=== PATIENT | male | born 1955 | race Caucasian/White ===

== ENCOUNTER 2020-07-01 12:21 | Outpatient (CLI) | payer BC | END 2020-07-01 12:22 | disposition home or self-care (01) | LOC: TBSIIMAG 12:21 | PROVIDERS: ATTEND Orthopaedic Surgery | DX: M75.101 Unspecified rotator cuff tear or rupture of right shoulder, not specified as traumatic (principal) ==

== ENCOUNTER 2020-07-01 14:06 | Outpatient (CLI) | payer BC ==
[2020-07-01 14:51] LABS: Hemoglobin 13.4 g/dL (13.5-17.5); Mean Corpuscular HGB CONC 33.7 g/dL (32.0-36.0); Mean Corpuscular Hemoglobin 33.5 pg (27.0-33.0); Mean Corpuscular Volume 99.5 fl (81.2-95.1); Mean Platelet Volume 9.9 fl (7.4-10.4); Platelet Count 129 10x3/uL (150-450); RBC Distribution Width 14.5 % (11.5-14.5); White Blood Cell (WBC) Count 4.9 10x3/uL (3.5-10.5)
[2020-07-01 15:01] LABS: Anion Gap 16 mmol/L (10-20); BUN (Urea Nitrogen) 27 mg/dL (8.4-25.7); Calc. Creatinine Clearance 0 mL/min (70-130); Calcium 9.6 mg/dL (7.8-10.44); Carbon Dioxide 21 mmol/L (23-31); Chloride 104 mmol/L (98-107); Glucose 201 mg/dL (80-115); Potassium 4.8 mmol/L (3.5-5.1); Sodium 136 mmol/L (136-145)
[2020-07-02 00:34] LABS: SARS-CoV-2 PCR by NAA Not Detected (NotDetected)
== END 2020-07-01 14:07 | disposition home or self-care (01) ==
LOC: LABBT 14:06
PROVIDERS: ATTEND Neurological Surgery
DX: Z01.818 Encounter for other preprocedural examination (principal); Z20.822 Contact with and (suspected) exposure to COVID-19; M51.16 Intervertebral disc disorders with radiculopathy, lumbar region
CPT/HCPCS: 80048; 85027; 87635; U0003; U0005

== ENCOUNTER 2020-07-04 05:45 | Day surgery (SDC) | payer BC ==
[2020-07-02 14:10] VITALS: BMI 32.3
[2020-07-04] MEDS ORDERED: Fentanyl 250 MCG/5 ML VIAL ONE (06:05)
[2020-07-04] MEDS ORDERED: Thrombin 5000 UNITS/5 ML VIAL ONE (06:25)
[2020-07-04] MEDS ORDERED: EPINEPHrine 1 MG/ML AMP ONE (06:25)
[2020-07-04] MEDS ORDERED: Bupivacaine 0.25% HCL 30 ML VIAL ONE (06:25)
[2020-07-04] MEDS ORDERED: Bupivacaine PF 0.5% 30 ML VIAL ONE (06:32)
[2020-07-04] MEDS ORDERED: Nitroglycerin 2% Ointment 1 INCH/1 GM Packet ONE (06:43)
[2020-07-04] MEDS ORDERED: SUGAMMADEX SODIUM 200 MG/2 ML VIAL ONE (07:33)
[2020-07-04] MEDS ORDERED: Tamsulosin HCl 0.4 MG CAP ONE (08:35)
[2020-07-04] MEDS ORDERED: traMADol HCl 50 MG TAB ONE (10:11)
== END 2020-07-04 11:00 | disposition home or self-care (01) ==
LOC: SDC 05:45
PROVIDERS: ATTEND Neurological Surgery
PROC: 0ST20ZZ Resection of Lumbar Vertebral Disc, Open Approach (ICD-10-PCS; principal; 2020-07-04)
DX: M51.16 Intervertebral disc disorders with radiculopathy, lumbar region (principal); E78.00 Pure hypercholesterolemia, unspecified; G89.4 Chronic pain syndrome; E11.9 Type 2 diabetes mellitus without complications; M19.90 Unspecified osteoarthritis, unspecified site; M10.9 Gout, unspecified; I10 Essential (primary) hypertension; I25.10 Atherosclerotic heart disease of native coronary artery without angina pectoris; Z79.4 Long term (current) use of insulin; Z79.82 Long term (current) use of aspirin; Z79.899 Other long term (current) drug therapy; Z88.5 Allergy status to narcotic agent; Z95.1 Presence of aortocoronary bypass graft
CPT/HCPCS: 36416; 76000; J0171; J0690; J3010; S0020

== ENCOUNTER 2020-09-12 13:20 | Outpatient (CLI) | payer BC ==
[2020-09-12 14:21] LABS: #Eosinphils 0.1 10x3/uL (0.0-0.5); #Monocytes 0.5 10x3/uL (0.0-1.1); #Neutrophils 1.6 10x3/uL (1.5-8.4); %Basophils 0.5 % (0.0-2.0); %Eosinophils 2.6 % (0.0-6.0); %Lymphocytes 44.1 % (18.0-47.0); %Monocytes 12.1 % (0.0-10.0); %Neutrophils 40.2 % (40.0-75.0); Hemoglobin 12.8 g/dL (13.5-17.5); Mean Corpuscular HGB CONC 32.7 g/dL (32.0-36.0); Mean Corpuscular Hemoglobin 32.7 pg (27.0-33.0); Mean Platelet Volume 9.8 fl (7.4-10.4); Platelet Count 124 10x3/uL (150-450); Red Blood Cell (RBC) Count 3.91 10x6/uL (4.32-5.72); White Blood Cell (WBC) Count 3.9 10x3/uL (3.5-10.5)
[2020-09-12 14:28] LABS: Prothrombin Time 10.8 sec (9.5-12.1)
[2020-09-12 14:31] LABS: Anion Gap 15 mmol/L (10-20); BUN (Urea Nitrogen) 18 mg/dL (8.4-25.7); Calc. Creatinine Clearance 0 mL/min (70-130); Calcium 10.1 mg/dL (7.8-10.44); Carbon Dioxide 23 mmol/L (23-31); Chloride 104 mmol/L (98-107); Glucose 108 mg/dL (80-115); Potassium 4.3 mmol/L (3.5-5.1); Sodium 138 mmol/L (136-145)
[2020-09-13 15:23] LABS: SARS-CoV-2 PCR by NAA Not Detected (NotDetected)
== END 2020-09-12 13:21 | disposition home or self-care (01) ==
LOC: LABBT 13:20
PROVIDERS: ATTEND Orthopaedic Surgery
DX: Z01.818 Encounter for other preprocedural examination (principal); M75.101 Unspecified rotator cuff tear or rupture of right shoulder, not specified as traumatic; Z20.822 Contact with and (suspected) exposure to COVID-19
CPT/HCPCS: 80048; 85025; 85610; 93005; 93010; U0003; U0005

== ENCOUNTER 2020-09-17 05:43 | Day surgery (SDC) | payer MEDICARE, BC ==
[2020-09-15 14:05] VITALS: BMI 36.0
[2020-09-17] MEDS ORDERED: VANCOMYCIN 2 GRAM/400 ML BAG 2 GM in Premix Bag 1 BAG IVPB SCH (06:00)
[2020-09-17] MEDS ORDERED: Fentanyl 100 MCG/2 ML VIAL ONE ×2 (06:22→06:40)
[2020-09-17] MEDS ORDERED: Midazolam HCl 2 mg/2 ml Vial ONE (06:40)
[2020-09-17] MEDS ORDERED: Rocuronium Bromide 10 MG/ML (10ML VIAL) ONE (07:33)
[2020-09-17] MEDS ORDERED: Metoclopramide HCl 10 MG/2 ML VIAL ONE (07:33)
[2020-09-17] MEDS ORDERED: Lidocaine 1% PF 5 ML VIAL ONE (07:33)
[2020-09-17] MEDS ORDERED: Glycopyrrolate 0.2 MG/ML 5 ML SYRINGE ONE (07:33)
[2020-09-17] MEDS ORDERED: PROPOFOL 200 MG/20 ML VIAL ONE (07:33)
[2020-09-17] MEDS ORDERED: PHENYLEPHRINE-NS 100 MCG/ML 10 ML SYRINGE ONE (07:33)
[2020-09-17] MEDS ORDERED: ePHEDrine 50 MG/ML VIAL ONE (07:33)
[2020-09-17] MEDS ORDERED: Ropivacaine 2% HCl/PF (20 MG/10 ML VIAL) ONE (07:33)
[2020-09-17] MEDS ORDERED: Ropivacaine 0.5% HCl/PF (150 MG/30 ML VIAL) ONE (07:33)
[2020-09-17] MEDS ORDERED: Ondansetron PF 4 MG/2 ML Vial ONE (07:33)
[2020-09-17] MEDS ORDERED: Phenylephrine 10 MG/ML VIAL ONE ×2 (08:20→09:14)
[2020-09-17] MEDS ORDERED: Promethazine HCl 25 MG/ML VIAL IM PRN (08:30)
[2020-09-17] MEDS ORDERED: Ondansetron PF 4 MG/2 ML Vial IVP PRN (08:30)
[2020-09-17] MEDS ORDERED: HYDROcodone/Acetaminophen 5/325 mg Tablet PO PRN ×2 (08:30)
[2020-09-17] MEDS ORDERED: traMADol HCl 50 MG TAB PO PRN ×2 (08:30)
[2020-09-17] MEDS ORDERED: Ropivacaine 0.2% 550 ML 550 ML NERVE BLCK SCH (08:30)
[2020-09-17] MEDS ORDERED: Zolpidem Tartrate 5 MG TAB PO PRN (08:30)
[2020-09-17] MEDS ORDERED: traMADol HCl 50 MG TAB ONE (13:04)
== END 2020-09-17 13:30 | disposition home or self-care (01) ==
LOC: SDC 05:43
PROVIDERS: ATTEND Orthopaedic Surgery
PROC: 0LS30ZZ Reposition Right Upper Arm Tendon, Open Approach (ICD-10-PCS; principal; 2020-09-17)
PROC: 0LQ10ZZ Repair Right Shoulder Tendon, Open Approach (ICD-10-PCS; 2020-09-17)
PROC: 0RNJ0ZZ Release Right Shoulder Joint, Open Approach (ICD-10-PCS; 2020-09-17)
PROC: 3E0T3BZ Introduction of Anesthetic Agent into Peripheral Nerves and Plexi, Percutaneous Approach (ICD-10-PCS; 2020-09-17)
DX: S46.111A Strain of muscle, fascia and tendon of long head of biceps, right arm, initial encounter (principal); M25.811 Other specified joint disorders, right shoulder; M75.121 Complete rotator cuff tear or rupture of right shoulder, not specified as traumatic; S43.491A Other sprain of right shoulder joint, initial encounter; I25.2 Old myocardial infarction; G47.33 Obstructive sleep apnea (adult) (pediatric); I25.10 Atherosclerotic heart disease of native coronary artery without angina pectoris; E10.9 Type 1 diabetes mellitus without complications; M10.9 Gout, unspecified; M19.90 Unspecified osteoarthritis, unspecified site; Z87.891 Personal history of nicotine dependence; Z79.82 Long term (current) use of aspirin; Z79.84 Long term (current) use of oral hypoglycemic drugs; Z79.899 Other long term (current) drug therapy; Z88.5 Allergy status to narcotic agent; Z95.1 Presence of aortocoronary bypass graft; Z95.5 Presence of coronary angioplasty implant and graft
CPT/HCPCS: 23130; 23412; 23430; 64416; 82962; A4306; 36416; J0690; J2250; J2370; J2405; J2704; J2765; J2795; J3010; J3370; J3490

== ENCOUNTER 2020-10-16 13:10 | Outpatient (CLI) | payer MEDICARE, BC | END 2020-10-16 13:11 | disposition home or self-care (01) | LOC: TBSIIMAG 13:10 | PROVIDERS: ATTEND Neurological Surgery | DX: M47.26 Other spondylosis with radiculopathy, lumbar region (principal); M51.16 Intervertebral disc disorders with radiculopathy, lumbar region; M48.061 Spinal stenosis, lumbar region without neurogenic claudication; Z98.890 Other specified postprocedural states | CPT/HCPCS: 72148; 82565 ==

== ENCOUNTER 2020-10-28 13:36 | Outpatient (CLI) | payer MEDICARE, BC ==
[2020-10-28 15:00] LABS: Anion Gap 16 mmol/L (10-20); BUN (Urea Nitrogen) 22 mg/dL (8.4-25.7); Calc. Creatinine Clearance 0 mL/min (70-130); Calcium 9.9 mg/dL (7.8-10.44); Carbon Dioxide 23 mmol/L (23-31); Chloride 102 mmol/L (98-107); Glucose 167 mg/dL (80-115); Potassium 4.2 mmol/L (3.5-5.1); Sodium 137 mmol/L (136-145)
[2020-10-28 15:20] LABS: Hemoglobin 12.9 g/dL (13.5-17.5); Mean Corpuscular Hemoglobin 33.2 pg (27.0-33.0); Mean Corpuscular Volume 100.8 fl (81.2-95.1); Mean Platelet Volume 10.1 fl (7.4-10.4); Platelet Count 127 10x3/uL (150-450); RBC Distribution Width 13.9 % (11.5-14.5); Red Blood Cell (RBC) Count 3.88 10x6/uL (4.32-5.72); White Blood Cell (WBC) Count 3.6 10x3/uL (3.5-10.5)
[2020-10-29 08:06] LABS: SARS-CoV-2 PCR by NAA Not Detected (NotDetected)
== END 2020-10-28 13:37 | disposition home or self-care (01) ==
LOC: LABBT 13:36
PROVIDERS: ATTEND Neurological Surgery
DX: Z01.812 Encounter for preprocedural laboratory examination (principal); Z20.822 Contact with and (suspected) exposure to COVID-19
CPT/HCPCS: 80048; 85027; U0003; U0005

== ENCOUNTER 2020-10-31 06:43 | Day surgery (SDC) | payer MEDICARE, BC ==
[2020-10-29 14:13] VITALS: BMI 30.7
[2020-10-31] MEDS ORDERED: Thrombin 5000 UNITS/5 ML VIAL ONE ×2 (09:26→11:42)
[2020-10-31] MEDS ORDERED: Lidocaine 1% w/Epinephrine 1:100K 20 ML VIAL ONE (09:26)
[2020-10-31] MEDS ORDERED: Bupivacaine PF 0.5% 30 ML VIAL ONE (09:26)
[2020-10-31] MEDS ORDERED: Fentanyl 250 MCG/5 ML VIAL ONE (10:03)
[2020-10-31] MEDS ORDERED: Ondansetron PF 4 MG/2 ML Vial ONE (10:17)
[2020-10-31] MEDS ORDERED: Rocuronium Bromide 10 MG/ML (10ML VIAL) ONE (10:17)
[2020-10-31] MEDS ORDERED: Glycopyrrolate 0.2 MG/ML 5 ML SYRINGE ONE (10:17)
[2020-10-31] MEDS ORDERED: PROPOFOL 200 MG/20 ML VIAL ONE (10:17)
[2020-10-31] MEDS ORDERED: ePHEDrine 50 MG/ML VIAL ONE (10:17)
[2020-10-31] MEDS ORDERED: Metoclopramide HCl 10 MG/2 ML VIAL ONE (10:17)
[2020-10-31] MEDS ORDERED: Lidocaine 1% PF 5 ML VIAL ONE (10:17)
[2020-10-31] MEDS ORDERED: PHENYLEPHRINE-NS 100 MCG/ML 10 ML SYRINGE ONE (10:17)
[2020-10-31] MEDS ORDERED: Fentanyl 100 MCG/2 ML VIAL ONE (12:19)
[2020-10-31] MEDS ORDERED: Tamsulosin HCl 0.4 MG CAP ONE (12:20)
[2020-10-31] MEDS ORDERED: HYDROcodone/Acetaminophen 5/325 mg Tablet ONE (14:20)
== END 2020-10-31 15:49 | disposition home or self-care (01) ==
LOC: SDC 06:43
PROVIDERS: ATTEND Neurological Surgery
PROC: 0SB20ZZ Excision of Lumbar Vertebral Disc, Open Approach (ICD-10-PCS; principal; 2020-10-31)
DX: M51.16 Intervertebral disc disorders with radiculopathy, lumbar region (principal); I25.10 Atherosclerotic heart disease of native coronary artery without angina pectoris; I10 Essential (primary) hypertension; E10.9 Type 1 diabetes mellitus without complications; E78.5 Hyperlipidemia, unspecified; G89.4 Chronic pain syndrome; M10.9 Gout, unspecified; Z79.4 Long term (current) use of insulin; Z79.82 Long term (current) use of aspirin; Z87.891 Personal history of nicotine dependence; Z88.5 Allergy status to narcotic agent; Z95.1 Presence of aortocoronary bypass graft; Z95.5 Presence of coronary angioplasty implant and graft
CPT/HCPCS: 76000; J0690; J2405; J2704; J2765; J3010; J3490; S0020

== ENCOUNTER 2021-02-13 12:55 | Outpatient (CLI) | payer MEDICARE, BC | END 2021-02-13 12:56 | disposition home or self-care (01) | LOC: BICULT 12:55 | PROVIDERS: ATTEND Family Medicine | DX: G45.9 Transient cerebral ischemic attack, unspecified (principal); I65.23 Occlusion and stenosis of bilateral carotid arteries | CPT/HCPCS: 93880 ==

== ENCOUNTER 2021-02-20 15:04 | Outpatient (CLI) | payer MEDICARE, BC ==
[~2021-02-20 15:04] MED LIST: Iopamidol-370 76% 500 ML 1 ML ONE
== END 2021-02-20 15:05 | disposition home or self-care (01) ==
LOC: BICCT 15:04
PROVIDERS: ATTEND Family Medicine
DX: R93.89 Abnormal findings on diagnostic imaging of other specified body structures (principal); I65.22 Occlusion and stenosis of left carotid artery; C34.12 Malignant neoplasm of upper lobe, left bronchus or lung
CPT/HCPCS: 70498; Q9967

== ENCOUNTER → 2021-03-10 | Outpatient (CLI) | payer MEDICARE, BC | LOC: PET 08:45 | PROVIDERS: ATTEND Thoracic Surgery (Cardiothoracic Vascular Surgery) | DX: I62.03 Nontraumatic chronic subdural hemorrhage (principal); C34.12 Malignant neoplasm of upper lobe, left bronchus or lung; I65.29 Occlusion and stenosis of unspecified carotid artery | CPT/HCPCS: 78816; A9552 ==

== ENCOUNTER 2021-03-18 15:47 | Outpatient (CLI) | payer MEDICARE, BC ==
[2021-03-18 16:42] LABS: Hemoglobin 12.8 g/dL (13.5-17.5); Mean Corpuscular HGB CONC 32.1 g/dL (32.0-36.0); Mean Corpuscular Hemoglobin 32.6 pg (27.0-33.0); Mean Corpuscular Volume 101.5 fl (81.2-95.1); Mean Platelet Volume 9.3 fl (7.4-10.4); Platelet Count 109 10x3/uL (150-450); RBC Distribution Width 14.7 % (11.5-14.5); Red Blood Cell (RBC) Count 3.93 10x6/uL (4.32-5.72); White Blood Cell (WBC) Count 3.5 10x3/uL (3.5-10.5)
[2021-03-18 17:01] LABS: Anion Gap 18 mmol/L (10-20); BUN (Urea Nitrogen) 21 mg/dL (8.4-25.7); Calc. Creatinine Clearance 0 mL/min (70-130); Calcium 9.1 mg/dL (7.8-10.44); Carbon Dioxide 22 mmol/L (23-31); Chloride 104 mmol/L (98-107); Glucose 155 mg/dL (80-115); Potassium 4.9 mmol/L (3.5-5.1); Sodium 139 mmol/L (136-145)
[2021-03-19 11:15] LABS: SARS-CoV-2 PCR by NAA Not Detected (NotDetected)
== END 2021-03-18 15:48 | disposition home or self-care (01) ==
LOC: LABBT 15:47
PROVIDERS: ATTEND Thoracic Surgery (Cardiothoracic Vascular Surgery)
DX: Z01.812 Encounter for preprocedural laboratory examination (principal); I65.29 Occlusion and stenosis of unspecified carotid artery; Z20.822 Contact with and (suspected) exposure to COVID-19
CPT/HCPCS: 80048; 85027; U0003; U0005

== ENCOUNTER 2021-03-18 16:00 | Inpatient (IN) | payer MEDICARE, BC ==
[2021-03-23] MEDS ORDERED: Heparin 5,000 UNITS/ML VIAL ONE (07:35)
[2021-03-23] MEDS ORDERED: Protamine Sulfate 50 MG/5 ML VIAL ONE (07:35)
[2021-03-23] MEDS ORDERED: Bupivacaine PF 0.5% 30 ML VIAL ONE (07:35)
[2021-03-23] MEDS ORDERED: EPINEPHrine 1 MG/ML AMP ONE (07:35)
[2021-03-23] MEDS ORDERED: ceFAZolin Sodium (SDC) 2 GM/100 ML BAG ONE (09:50)
[2021-03-23] MEDS ORDERED: Lidocaine 1% MPF 2 ML VIAL ONE (09:58)
[2021-03-23] MEDS ORDERED: Rocuronium Bromide 10 MG/ML (10ML VIAL) ONE (10:05)
[2021-03-23] MEDS ORDERED: Ondansetron PF 4 MG/2 ML Vial ONE (10:05)
[2021-03-23] MEDS ORDERED: Glycopyrrolate 0.2 MG/ML 5 ML SYRINGE ONE (10:05)
[2021-03-23] MEDS ORDERED: PROPOFOL 200 MG/20 ML VIAL ONE (10:05)
[2021-03-23] MEDS ORDERED: PHENYLEPHRINE-NS 100 MCG/ML 10 ML SYRINGE ONE ×2 (10:05→10:58)
[2021-03-23] MEDS ORDERED: ePHEDrine 50 MG/ML VIAL ONE (10:05)
[2021-03-23] MEDS ORDERED: Fentanyl 250 MCG/5 ML VIAL ONE (10:17)
[2021-03-23] MEDS ORDERED: Promethazine HCl 25 MG/ML VIAL IVPB PRN (12:02)
[2021-03-23] MEDS ORDERED: Promethazine HCl 25 MG/ML VIAL IM PRN ×2 (12:02→12:21)
[2021-03-23] MEDS ORDERED: Ondansetron HCl/PF 4 MG/2 ML Vial IVP PRN (12:02)
[2021-03-23] MEDS ORDERED: Fentanyl 100 MCG/2 ML VIAL SLOW IVP PRN (12:21)
[2021-03-23] MEDS ORDERED: Phenylephrine 40 MG in Sodium Chloride 0.9% 250 ML 250 ML IVPB PRN (12:21)
[2021-03-23] MEDS ORDERED: niCARdipine 25 MG in Sodium Chloride 0.9% 250 ML 250 ML IVPB PRN (12:21)
[2021-03-23] MEDS ORDERED: Acetaminophen 325 MG TAB PO PRN (12:21)
[2021-03-23] MEDS ORDERED: Insulin Regular 300 UNITS/3 ML VIAL SC PRN (12:21)
[2021-03-23] MEDS ORDERED: traMADol HCl 50 MG TAB PO PRN (12:21)
[2021-03-23] MEDS ORDERED: Ondansetron PF 4 MG/2 ML Vial IVP PRN (12:21)
[2021-03-23] MEDS ORDERED: Sodium Chloride 0.9% 1,000 ML IV SCH (12:21)
[2021-03-23] MEDS ORDERED: traMADol HCl 50 MG TAB ONE ×2 (13:43→13:44)
[2021-03-23] MEDS: CEFAZOLIN 2 GM, Admixture Fee 1 EACH in Sodium Chloride 0.9% 100 ML IVPB SCH (18:28)
[2021-03-23] MEDS ORDERED: Zolpidem Tartrate 5 MG TAB PO SCH (21:00)
[2021-03-23] MEDS ORDERED: Colchicine 0.6 MG TAB PO SCH (21:00)
[2021-03-23] MEDS ORDERED: Lantus 1000 UNITS/10 ML VIAL SC SCH (21:00)
[2021-03-23] MEDS ORDERED: Tamsulosin HCl 0.4 MG CAP PO SCH (21:00)
[2021-03-23] MEDS ORDERED: Amitriptyline HCl 25 MG TAB PO SCH (21:00)
[2021-03-24] MEDS: CEFAZOLIN 2 GM, Admixture Fee 1 EACH in Sodium Chloride 0.9% 100 ML IVPB SCH (02:14)
[2021-03-24 05:35] VITALS: TEMP 98.5
[2021-03-24] MEDS ORDERED: metFORMIN 850 MG TAB PO SCH (08:00)
[2021-03-24] MEDS ORDERED: Aspirin Chewable 81 MG TAB PO SCH (09:00)
== END 2021-03-24 07:51 | disposition home or self-care (01) | DRG 39 ==
LOC: SURG A 03-23 06:49 → CCU 03-23 15:32
PROVIDERS: ADMIT Thoracic Surgery (Cardiothoracic Vascular Surgery); ATTEND Thoracic Surgery (Cardiothoracic Vascular Surgery)
PROC: 03CH0ZZ Extirpation of Matter from Right Common Carotid Artery, Open Approach (ICD-10-PCS; principal; 2021-03-23)
PROC: 03UH0KZ Supplement Right Common Carotid Artery with Nonautologous Tissue Substitute, Open Approach (ICD-10-PCS; 2021-03-23)
DX: I65.23 Occlusion and stenosis of bilateral carotid arteries (principal); Z20.822 Contact with and (suspected) exposure to COVID-19; I10 Essential (primary) hypertension; E78.5 Hyperlipidemia, unspecified; I25.10 Atherosclerotic heart disease of native coronary artery without angina pectoris; E11.9 Type 2 diabetes mellitus without complications; M10.9 Gout, unspecified; M19.90 Unspecified osteoarthritis, unspecified site; F17.210 Nicotine dependence, cigarettes, uncomplicated; Z88.5 Allergy status to narcotic agent; Z95.1 Presence of aortocoronary bypass graft; Z88.8 Allergy status to other drugs, medicaments and biological substances; Z79.4 Long term (current) use of insulin; Z79.899 Other long term (current) drug therapy; Z79.84 Long term (current) use of oral hypoglycemic drugs; Z79.82 Long term (current) use of aspirin
CPT/HCPCS: 36416; 93005; 93010; C1768; J0171; J0690; J1642; J1644; J1815; J2405; J2704; J2720; J3010; J3490; S0020

== ENCOUNTER 2021-05-11 13:58 | Outpatient (CLI) | payer MEDICARE, BC ==
[2021-05-11 14:35] LABS: Hemoglobin 12.7 g/dL (13.5-17.5); Mean Corpuscular HGB CONC 32.8 g/dL (32.0-36.0); Mean Corpuscular Hemoglobin 32.9 pg (27.0-33.0); Mean Corpuscular Volume 100.3 fl (81.2-95.1); Mean Platelet Volume 9.5 fl (7.4-10.4); Platelet Count 169 10x3/uL (150-450); RBC Distribution Width 14.6 % (11.5-14.5); Red Blood Cell (RBC) Count 3.86 10x6/uL (4.32-5.72); White Blood Cell (WBC) Count 2.8 10x3/uL (3.5-10.5)
[2021-05-11 15:02] LABS: Anion Gap 15 mmol/L (10-20); BUN (Urea Nitrogen) 20 mg/dL (8.4-25.7); Calc. Creatinine Clearance 0 mL/min (70-130); Calcium 9.2 mg/dL (7.8-10.44); Carbon Dioxide 23 mmol/L (23-31); Chloride 104 mmol/L (98-107); Glucose 189 mg/dL (80-115); Sodium 138 mmol/L (136-145)
[2021-05-11 23:44] LABS: SARS-CoV-2 PCR by NAA Not Detected (NotDetected)
== END 2021-05-11 13:59 | disposition home or self-care (01) ==
LOC: LABBT 13:58
PROVIDERS: ATTEND Thoracic Surgery (Cardiothoracic Vascular Surgery)
DX: Z01.812 Encounter for preprocedural laboratory examination (principal); I65.21 Occlusion and stenosis of right carotid artery; Z20.822 Contact with and (suspected) exposure to COVID-19; J18.9 Pneumonia, unspecified organism; R91.8 Other nonspecific abnormal finding of lung field
CPT/HCPCS: 71046; 80048; 85027; U0003; U0005

== ENCOUNTER → 2021-06-30 | Day surgery (SDC) | payer MEDICARE, BC ==
[~2021-06-30] MED LIST changes: +Acetaminophen 500 MG TAB ONE; -Iopamidol-370 76% 500 ML 1 ML ONE; +diphenhydrAMINE 25 MG CAP ONE
[2021-06-30 12:24] VITALS: TEMP 97.8
[2021-06-30 12:27] VITALS: BP 104/58
[2021-06-30 13:13] LABS: Band 4 % (5-11); Hemoglobin 6.8 g/dL (14.0-18.0); Lymphocytes 12 % (21-51); MDiff Complete? YES; Mean Corpuscular HGB CONC 34.6 g/dL (32.0-36.0); Mean Corpuscular Hemoglobin 34.2 pg (27.0-31.0); Mean Corpuscular Volume 98.6 fL (78.0-98.0); Mean Platelet Volume 10.3 fL (7.4-10.4); Monocytes 4 % (0-10); Neutrophil 80 % (42-75); Ovalocytes SLIGHT = 2-5 cells (100X) (0-1/hpf); Platelet Count 40 thou/uL (130-400); Platelet Morphology Comment Appears Decreased; Polychromasia SLIGHT = 2-3 cells (100X) (0-2/hpf); RBC Distribution Width 15.2 % (11.5-14.5); White Blood Cell (WBC) Count 1.2 thou/uL (4.8-10.8)
== END | disposition home or self-care (01) ==
LOC: ONC/OP 09:23
PROVIDERS: ATTEND Internal Medicine Hematology & Oncology
PROC: 30233N1 Transfusion of Nonautologous Red Blood Cells into Peripheral Vein, Percutaneous Approach (ICD-10-PCS; principal; 2021-06-30)
DX: D64.9 Anemia, unspecified (principal); D69.6 Thrombocytopenia, unspecified; Z88.5 Allergy status to narcotic agent
CPT/HCPCS: 36430; 77386; 85025; 86850; 86900; 86901; J1642; P9016

== ENCOUNTER 2021-07-06 13:23 | Emergency (ER) | payer MEDICARE, BC ==
[2021-07-06 15:22] LABS: Hemoglobin 8.2 g/dL (14.0-18.0); Mean Corpuscular HGB CONC 34.6 g/dL (32.0-36.0); Mean Corpuscular Hemoglobin 34.4 pg (27.0-31.0); Mean Corpuscular Volume 99.6 fL (78.0-98.0); Mean Platelet Volume 9.2 fL (7.4-10.4); Platelet Count 63 thou/uL (130-400); RBC Distribution Width 19.1 % (11.5-14.5); Red Blood Cell (RBC) Count 2.38 mill/uL (4.70-6.10); White Blood Cell (WBC) Count 1.7 thou/uL (4.8-10.8)
[2021-07-06 15:39] LABS: Anisocytosis SLIGHT = 6-15 cells (100X) (0-5/hpf); Band 19 % (5-11); Eosinophils 2 % (0-10); Lymphocytes 13 % (21-51); MDiff Complete? YES; Monocytes 21 % (0-10); Neutrophil 43 % (42-75); Nucleated RBC 2 % (0); Ovalocytes SLIGHT = 2-5 cells (100X) (0-1/hpf); Platelet Morphology Comment Appears Decreased; Polychromasia MODERATE = 3-4 cells (100X) (0-2/hpf); Reactive Lymphocytes 1 % (0-10)
[2021-07-06 15:40] LABS: ALT (SGPT) 15 U/L (8-55); AST (SGOT) 21 U/L (5-34); Alkaline Phosphatase 66 U/L (40-110); Anion Gap 13 mmol/L (10-20); BUN (Urea Nitrogen) 19 mg/dL (8.4-25.7); Bilirubin, Total 0.8 mg/dL (0.2-1.2); CK (CPK) 101 U/L (30-200); Calc. Creatinine Clearance 0 mL/min (70-130); Calcium 8.9 mg/dL (7.8-10.44); Carbon Dioxide 24 mmol/L (23-31); Chloride 104 mmol/L (98-107); Globulin 2.9 g/dL (2.4-3.5); Glucose 116 mg/dL (80-115); Protein, Total 6.9 g/dL (5.8-8.1); Sodium 137 mmol/L (136-145)
[2021-07-06 17:07] LABS: Bilirubin Negative (Negative); Blood, Urine Negative (Negative); Clarity Clear (Clear); Glucose, Urine (Dipstick) Greater than 1000 mg/dL (Negative); Ketone, Urine Negative (Negative); Leukocyte Negative Leu/uL (Negative); Nitrite Negative (Negative); Protein, Urine (Dipstick) Negative (Neg-Trace); Specific Gravity, Urine 1.036 (1.002-1.036); Urobilinogen Normal mg/dL (Less than 2)
== END 2021-07-06 17:59 | disposition home or self-care (01) ==
LOC: ERS 13:23
DX: R55 Syncope and collapse (principal); M79.605 Pain in left leg; E11.9 Type 2 diabetes mellitus without complications; I10 Essential (primary) hypertension; I25.10 Atherosclerotic heart disease of native coronary artery without angina pectoris; E78.5 Hyperlipidemia, unspecified; E78.00 Pure hypercholesterolemia, unspecified; W19.XXXA Unspecified fall, initial encounter; W22.8XXA Striking against or struck by other objects, initial encounter
CPT/HCPCS: 70450; 71045; 80053; 81003; 82550; 83605; 84484; 85025; 93005; 96360; J1642

== ENCOUNTER 2021-07-29 12:09 | Outpatient (CLI) | payer MEDICARE, BC | END 2021-07-29 12:10 | disposition home or self-care (01) | LOC: BICRAD 12:09 | PROVIDERS: ATTEND Family Medicine | DX: M89.8X6 Other specified disorders of bone, lower leg (principal); S82.832A Other fracture of upper and lower end of left fibula, initial encounter for closed fracture ==

== ENCOUNTER 2021-08-20 11:00 | Outpatient (CLI) | payer MEDICARE, BC | END 2021-08-20 11:01 | disposition home or self-care (01) | LOC: PET 11:00 | PROVIDERS: ATTEND Internal Medicine Hematology & Oncology | DX: C34.82 Malignant neoplasm of overlapping sites of left bronchus and lung (principal); D70.8 Other neutropenia; D46.1 Refractory anemia with ring sideroblasts; R91.8 Other nonspecific abnormal finding of lung field; J18.9 Pneumonia, unspecified organism | CPT/HCPCS: 78815; A9552; 36415; 80053; 83735; 85025 ==

== ENCOUNTER 2021-08-20 11:57 | Outpatient (CLI) | payer MEDICARE, BC | END 2021-08-20 11:58 | disposition home or self-care (01) | LOC: BICRAD 11:57 | PROVIDERS: ATTEND Family Medicine | DX: S82.422D Displaced transverse fracture of shaft of left fibula, subsequent encounter for closed fracture with routine healing (principal) ==

== ENCOUNTER 2021-08-28 11:02 | Outpatient (CLI) | payer MEDICARE, BC | END 2021-08-28 11:03 | disposition home or self-care (01) | LOC: SCSMRI 11:02 | PROVIDERS: ATTEND Internal Medicine Hematology & Oncology | DX: C34.82 Malignant neoplasm of overlapping sites of left bronchus and lung (principal); D46.1 Refractory anemia with ring sideroblasts; D70.8 Other neutropenia | CPT/HCPCS: 70553 ==

== ENCOUNTER 2021-10-05 08:21 | Outpatient (CLI) | payer MEDICARE, BC ==
[2021-10-05] MEDS ORDERED: Iopamidol-370 76% 500 ML 1 ML ONE (09:41)
== END 2021-10-05 08:22 | disposition home or self-care (01) ==
LOC: BICCT 08:21
PROVIDERS: ATTEND Internal Medicine Hematology & Oncology
DX: C34.82 Malignant neoplasm of overlapping sites of left bronchus and lung (principal); D46.1 Refractory anemia with ring sideroblasts; D70.8 Other neutropenia
CPT/HCPCS: 71260; 82565; Q9967

== ENCOUNTER 2021-12-17 22:06 | Inpatient (IN) | payer MEDICARE, BC ==
[2021-12-17 22:43] LABS: #Lymphocytes 0.7 thou/uL (1.20-3.40); #Monocytes 0.3 thou/uL (0.11-0.59); #Neutrophils 4.7 thou/uL (1.40-6.50); %Basophils 0.5 % (0.0-1.0); %Eosinophils 0.5 % (0.0-10.0); %Lymphocytes 11.4 % (21.0-51.0); %Neutrophils 82.6 % (42.0-75.0); Hemoglobin 12.3 g/dL (14.0-18.0); Mean Corpuscular HGB CONC 33.3 g/dL (32.0-36.0); Mean Corpuscular Hemoglobin 35.2 pg (27.0-31.0); Mean Platelet Volume 10.3 fL (7.4-10.4); Platelet Count 53 10x3/uL (130-400); RBC Distribution Width 15.8 % (11.5-14.5); White Blood Cell (WBC) Count 5.7 10x3/uL (4.8-10.8)
[2021-12-17 22:54] LABS: ALT (SGPT) 37 U/L (8-55); AST (SGOT) 28 U/L (5-34); Albumin 4.2 g/dL (3.4-4.8); Alkaline Phosphatase 133 U/L (40-110); Anion Gap 16 mmol/L (10-20); BUN (Urea Nitrogen) 21 mg/dL (8.4-25.7); Bilirubin, Total 0.6 mg/dL (0.2-1.2); CK (CPK) 169 U/L (30-200); Calc. Creatinine Clearance 0 mL/min (70-130); Calcium 9.6 mg/dL (7.8-10.44); Carbon Dioxide 23 mmol/L (23-31); Chloride 103 mmol/L (98-107); Estimated GFR 68; Globulin 3.6 g/dL (2.4-3.5); Glucose 215 mg/dL (80-115); Lipase 16 U/L (8-78); Potassium 3.9 mmol/L (3.5-5.1); Protein, Total 7.8 g/dL (5.8-8.1); Sodium 138 mmol/L (136-145)
[2021-12-17] MEDS ORDERED: Metoprolol Tartrate 5 MG/5 ML VIAL ONE (22:59)
[2021-12-18 02:28] VITALS: BMI 31.4
[2021-12-18] MEDS ORDERED: Acetaminophen 650 MG Suppository PR PRN (02:46)
[2021-12-18] MEDS ORDERED: Ondansetron ODT 4 MG TAB PO PRN (02:46)
[2021-12-18] MEDS ORDERED: Acetaminophen 325 MG TAB PO PRN (02:46)
[2021-12-18] MEDS ORDERED: Ondansetron PF 4 MG/2 ML Vial IVP PRN (02:46)
[2021-12-18 02:50] LABS: Troponin I 0.121 ng/mL (< 0.028)
[2021-12-18] MEDS: Metoprolol Tartrate 5 MG/5 ML VIAL IVP SCH ×2 (02:53→03:03)
[2021-12-18] MEDS ORDERED: Cefepime 2 GM in Sodium Chloride 0.9% 100 ML IVPB SCH (03:00)
[2021-12-18] MEDS ORDERED: Dextrose 5% in Water 1,000 ML IV PRN (03:04)
[2021-12-18] MEDS ORDERED: HumaLOG 300 UNITS/3 ML VIAL SC PRN (03:04)
[2021-12-18] MEDS ORDERED: Dextrose 50% Abboject 50 ML SYRINGE SLOW IVP PRN (03:04)
[2021-12-18] MEDS ORDERED: Diltiazem 125 MG in Sodium Chloride 0.9% 100 ML IVPB SCH ×2 (03:15→09:15)
[2021-12-18] MEDS ORDERED: Doxycycline 100 MG in Sodium Chloride 0.9% 100 ML IVPB SCH (03:30)
[2021-12-18] MEDS: Cefepime 2 GM in Sodium Chloride 0.9% 100 ML IVPB SCH ×2 (05:04→17:13)
[2021-12-18 05:31] LABS: #Lymphocytes 0.8 thou/uL (1.20-3.40); #Monocytes 0.4 thou/uL (0.11-0.59); #Neutrophils 3.9 thou/uL (1.40-6.50); %Basophils 0.7 % (0.0-1.0); %Eosinophils 0.7 % (0.0-10.0); %Lymphocytes 15.5 % (21.0-51.0); %Monocytes 8.2 % (0.0-10.0); %Neutrophils 74.9 % (42.0-75.0); Hemoglobin 11.7 g/dL (14.0-18.0); Mean Corpuscular HGB CONC 32.7 g/dL (32.0-36.0); Mean Corpuscular Hemoglobin 34.8 pg (27.0-31.0); Mean Platelet Volume 10.3 fL (7.4-10.4); Platelet Count 56 10x3/uL (130-400); RBC Distribution Width 15.7 % (11.5-14.5); Red Blood Cell (RBC) Count 3.36 mill/uL (4.70-6.10); White Blood Cell (WBC) Count 5.2 10x3/uL (4.8-10.8)
[2021-12-18] MEDS: Doxycycline 100 MG in Sodium Chloride 0.9% 100 ML IVPB SCH ×2 (05:57→17:48)
[2021-12-18 05:59] LABS: Troponin I 0.277 ng/mL (< 0.028)
[2021-12-18 06:03] LABS: Anion Gap 12 mmol/L (10-20); BUN (Urea Nitrogen) 16 mg/dL (8.4-25.7); Calc. Creatinine Clearance 108 mL/min (70-130); Calcium 9.2 mg/dL (7.8-10.44); Carbon Dioxide 21 mmol/L (23-31); Chloride 106 mmol/L (98-107); Estimated GFR 80; Glucose 193 mg/dL (80-115); Potassium 4.2 mmol/L (3.5-5.1); Sodium 135 mmol/L (136-145)
[2021-12-18 06:04] LABS: Magnesium 2.2 mg/dL (1.6-2.6)
[2021-12-18] MEDS: HumaLOG 300 UNITS/3 ML VIAL SC PRN ×2 (06:26→12:27)
[2021-12-18 08:44] LABS: Troponin I 0.481 ng/mL (< 0.028)
[2021-12-18] MEDS ORDERED: Apixaban 5 MG TAB PO SCH (09:00)
[2021-12-18] MEDS: Aspirin Chewable 81 MG TAB PO SCH (09:22)
[2021-12-18] MEDS: Clopidogrel Bisulfate 75 MG TAB PO SCH (09:22)
[2021-12-18] MEDS: Digoxin 0.5 MG/2 ML AMP SLOW IVP SCH ×3 (10:07→21:17)
[2021-12-18] MEDS ORDERED: Iopamidol 370 76% 100 ML VIAL ONE (10:17)
[2021-12-18] MEDS: Atorvastatin Calcium 10 MG TAB PO SCH (17:13)
[2021-12-18] MEDS: Mometasone 100 MCG/Formoterol 5 MCG 120 PUFF INHALER INH SCH (19:09)
[2021-12-18] MEDS: Insulin Glargine 30 UNITS/0.3 ML VIAL SC SCH (21:13)
[2021-12-19] MEDS: Digoxin 0.5 MG/2 ML AMP SLOW IVP SCH (03:18)
[2021-12-19] MEDS: Cefepime 2 GM in Sodium Chloride 0.9% 100 ML IVPB SCH ×2 (05:32→17:10)
[2021-12-19] MEDS: Doxycycline 100 MG in Sodium Chloride 0.9% 100 ML IVPB SCH ×2 (05:33→17:58)
[2021-12-19] MEDS: Mometasone 100 MCG/Formoterol 5 MCG 120 PUFF INHALER INH SCH ×2 (07:53→19:30)
[2021-12-19] MEDS ORDERED: Amitriptyline HCl 25 MG TAB PO SCH (09:00)
[2021-12-19] MEDS: Allopurinol 300 MG TAB PO SCH (09:01)
[2021-12-19] MEDS: Empagliflozin 25 MG TAB PO SCH (11:00)
[2021-12-19] MEDS: Colchicine 0.3 MG TAB PO SCH (11:00)
[2021-12-19] MEDS: HumaLOG 300 UNITS/3 ML VIAL SC PRN ×2 (11:02→17:11)
[2021-12-19] MEDS: Enoxaparin Sodium 80 MG/0.8 ML SYRINGE SC SCH ×2 (11:59→21:46)
[2021-12-19] MEDS: Aspirin Chewable 81 MG TAB PO SCH (11:59)
[2021-12-19] MEDS: Clopidogrel Bisulfate 75 MG TAB PO SCH (12:00)
[2021-12-19] MEDS: Atorvastatin Calcium 10 MG TAB PO SCH (17:11)
[2021-12-19] MEDS: Amitriptyline HCl 25 MG TAB PO SCH (20:45)
[2021-12-19] MEDS: Insulin Glargine 30 UNITS/0.3 ML VIAL SC SCH (20:47)
[2021-12-20] MEDS: Doxycycline 100 MG in Sodium Chloride 0.9% 100 ML IVPB SCH ×2 (05:08→17:55)
[2021-12-20] MEDS: Cefepime 2 GM in Sodium Chloride 0.9% 100 ML IVPB SCH ×2 (05:09→17:02)
[2021-12-20 06:00] LABS: Band 16 % (5-11); Hemoglobin 11.6 g/dL (14.0-18.0); Hypochromia SLIGHT = 6-15 cells (100X) (0-5/hpf); Lymphocytes 16 % (21-51); MDiff Complete? YES; Macrocytosis SLIGHT = 6-15 cells (100X) (0-5/hpf); Mean Corpuscular HGB CONC 33.7 g/dL (32.0-36.0); Mean Corpuscular Hemoglobin 35.9 pg (27.0-31.0); Mean Platelet Volume 9.9 fL (7.4-10.4); Monocytes 4 % (0-10); Neutrophil 60 % (42-75); Platelet Count 44 10x3/uL (130-400); Platelet Morphology Comment Appears Decreased; RBC Distribution Width 15.4 % (11.5-14.5); Reactive Lymphocytes 4 % (0-10); Red Blood Cell (RBC) Count 3.23 mill/uL (4.70-6.10); White Blood Cell (WBC) Count 2.5 10x3/uL (4.8-10.8)
[2021-12-20] MEDS: Mometasone 100 MCG/Formoterol 5 MCG 120 PUFF INHALER INH SCH ×2 (06:56→19:12)
[2021-12-20] MEDS ORDERED: Colchicine 0.6 MG TAB PO SCH (09:15)
[2021-12-20] MEDS: Empagliflozin 25 MG TAB PO SCH (09:39)
[2021-12-20] MEDS: Aspirin Chewable 81 MG TAB PO SCH (09:40)
[2021-12-20] MEDS: Allopurinol 300 MG TAB PO SCH (09:40)
[2021-12-20] MEDS: predniSONE 5 MG TAB PO SCH (09:40)
[2021-12-20] MEDS: Enoxaparin Sodium 80 MG/0.8 ML SYRINGE SC SCH (09:40)
[2021-12-20] MEDS: Colchicine 0.3 MG TAB PO SCH (10:00)
[2021-12-20] MEDS: HumaLOG 300 UNITS/3 ML VIAL SC PRN ×2 (11:10→17:03)
[2021-12-20] MEDS: Atorvastatin Calcium 10 MG TAB PO SCH (17:03)
[2021-12-20] MEDS: Amitriptyline HCl 25 MG TAB PO SCH (20:22)
[2021-12-20] MEDS: Insulin Glargine 30 UNITS/0.3 ML VIAL SC SCH (20:23)
[2021-12-20] MEDS: Enoxaparin Sodium 40 MG/0.4 ML SYRINGE SC SCH (20:23)
[2021-12-21] MEDS: Doxycycline 100 MG in Sodium Chloride 0.9% 100 ML IVPB SCH ×2 (05:17→18:36)
[2021-12-21] MEDS: Cefepime 2 GM in Sodium Chloride 0.9% 100 ML IVPB SCH ×2 (05:17→18:36)
[2021-12-21 06:29] LABS: Anion Gap 14 mmol/L (10-20); BUN (Urea Nitrogen) 15 mg/dL (8.4-25.7); Calc. Creatinine Clearance 122 mL/min (70-130); Calcium 9.2 mg/dL (7.8-10.44); Carbon Dioxide 23 mmol/L (23-31); Chloride 104 mmol/L (98-107); Estimated GFR 93; Glucose 123 mg/dL (80-115); Potassium 3.5 mmol/L (3.5-5.1); Sodium 137 mmol/L (136-145)
[2021-12-21 08:05] LABS: Hemoglobin 11.8 g/dL (14.0-18.0); Mean Corpuscular HGB CONC 32.9 g/dL (32.0-36.0); Mean Corpuscular Hemoglobin 35.2 pg (27.0-31.0); Mean Platelet Volume 10.6 fL (7.4-10.4); Platelet Count 50 10x3/uL (130-400); RBC Distribution Width 15.3 % (11.5-14.5); Red Blood Cell (RBC) Count 3.36 mill/uL (4.70-6.10)
[2021-12-21] MEDS: Empagliflozin 25 MG TAB PO SCH (09:39)
[2021-12-21] MEDS: Aspirin Chewable 81 MG TAB PO SCH (09:39)
[2021-12-21] MEDS: Enoxaparin Sodium 40 MG/0.4 ML SYRINGE SC SCH ×2 (09:39→20:46)
[2021-12-21] MEDS: Allopurinol 300 MG TAB PO SCH (09:39)
[2021-12-21] MEDS: Colchicine 0.6 MG TAB PO SCH (09:39)
[2021-12-21] MEDS: predniSONE 5 MG TAB PO SCH (09:40)
[2021-12-21 11:24] LABS: Band 4 % (5-11); Eosinophils 2 % (0-10); Lymphocytes 30 % (21-51); MDiff Complete? YES; Macrocytosis SLIGHT = 6-15 cells (100X) (0-5/hpf); Monocytes 16 % (0-10); Neutrophil 48 % (42-75); Platelet Morphology Comment Appears Decreased; Polychromasia SLIGHT = 2-3 cells (100X) (0-2/hpf)
[2021-12-21] MEDS: Mometasone 100 MCG/Formoterol 5 MCG 120 PUFF INHALER INH SCH ×2 (11:27→19:08)
[2021-12-21] MEDS ORDERED: Heparin 25,000 units/D5W 0 ML ONE (14:12)
[2021-12-21] MEDS ORDERED: Protamine Sulfate 50 MG/5 ML VIAL ONE (14:12)
[2021-12-21] MEDS ORDERED: Isoproterenol 0.2 MG/1 ML AMP ONE (14:12)
[2021-12-21] MEDS ORDERED: Lidocaine 1% (PF) 30 ML VIAL ONE (14:12)
[2021-12-21] MEDS ORDERED: Heparin 10,000 UNITS/ 10 ML VIAL ONE (14:12)
[2021-12-21] MEDS ORDERED: Ondansetron PF 4 MG/2 ML Vial ONE (14:15)
[2021-12-21] MEDS ORDERED: DOPamine 400 MG/D5W 250 ML 250 ML ONE (14:45)
[2021-12-21] MEDS ORDERED: Propofol 1,000 MG/100 ML VIAL IV ONE (14:52)
[2021-12-21] MEDS ORDERED: Midazolam HCl 2 mg/2 ml Vial ONE (14:54)
[2021-12-21] MEDS ORDERED: fentaNYL PF 100 MCG/2 ML SYRINGE ONE (14:54)
[2021-12-21] MEDS ORDERED: Ketamine 50 MG/ML (10ML VIAL) ONE (14:57)
[2021-12-21] MEDS: Atorvastatin Calcium 10 MG TAB PO SCH (18:36)
[2021-12-21] MEDS ORDERED: Polyethylene Glycol 3350 17 GM Packet PO SCH (19:00)
[2021-12-21] MEDS: Senokot S 8.6-50 MG TAB PO SCH (20:45)
[2021-12-21] MEDS: Amitriptyline HCl 25 MG TAB PO SCH (20:46)
[2021-12-21] MEDS: Insulin Glargine 30 UNITS/0.3 ML VIAL SC SCH (20:48)
[2021-12-22] MEDS: Cefepime 2 GM in Sodium Chloride 0.9% 100 ML IVPB SCH (04:55)
[2021-12-22] MEDS: Doxycycline 100 MG in Sodium Chloride 0.9% 100 ML IVPB SCH (04:56)
[2021-12-22] MEDS: Mometasone 100 MCG/Formoterol 5 MCG 120 PUFF INHALER INH SCH (07:31)
[2021-12-22] MEDS: Allopurinol 300 MG TAB PO SCH (08:43)
[2021-12-22] MEDS: Empagliflozin 25 MG TAB PO SCH (08:43)
[2021-12-22] MEDS: Colchicine 0.6 MG TAB PO SCH (08:43)
[2021-12-22] MEDS: Senokot S 8.6-50 MG TAB PO SCH (08:44)
[2021-12-22] MEDS: predniSONE 5 MG TAB PO SCH (08:44)
[2021-12-22] MEDS: Aspirin Chewable 81 MG TAB PO SCH (10:52)
[2021-12-22] MEDS: Enoxaparin Sodium 40 MG/0.4 ML SYRINGE SC SCH (10:53)
[2021-12-22 11:27] VITALS: BP 150/71; TEMP 98.2
== END 2021-12-22 12:05 | disposition home or self-care (01) | DRG 273 ==
LOC: ERS 22:06 → NEURO 12-18 00:25 → OBSVTOIN 12-18 17:58 → 2SW 12-21 13:53
PROVIDERS: ADMIT Family Medicine; ATTEND Family Medicine
PROC: 02583ZZ Destruction of Conduction Mechanism, Percutaneous Approach (ICD-10-PCS; principal; 2021-12-21)
PROC: 02K83ZZ Map Conduction Mechanism, Percutaneous Approach (ICD-10-PCS; 2021-12-21)
DX: I48.3 Typical atrial flutter (principal); I21.A1 Myocardial infarction type 2; J15.9 Unspecified bacterial pneumonia; J70.0 Acute pulmonary manifestations due to radiation; I25.110 Atherosclerotic heart disease of native coronary artery with unstable angina pectoris; C34.91 Malignant neoplasm of unspecified part of right bronchus or lung; C34.92 Malignant neoplasm of unspecified part of left bronchus or lung; Z51.5 Encounter for palliative care; D46.9 Myelodysplastic syndrome, unspecified; I48.91 Unspecified atrial fibrillation; D69.6 Thrombocytopenia, unspecified; E11.22 Type 2 diabetes mellitus with diabetic chronic kidney disease; N18.30 Chronic kidney disease, stage 3 unspecified; M06.9 Rheumatoid arthritis, unspecified; Z79.82 Long term (current) use of aspirin; Z88.5 Allergy status to narcotic agent; Z88.8 Allergy status to other drugs, medicaments and biological substances; Z87.891 Personal history of nicotine dependence; Z95.1 Presence of aortocoronary bypass graft; Z79.01 Long term (current) use of anticoagulants; Z79.84 Long term (current) use of oral hypoglycemic drugs; Z79.899 Other long term (current) drug therapy; Z79.51 Long term (current) use of inhaled steroids; Z79.52 Long term (current) use of systemic steroids
CPT/HCPCS: 36415; 36416; 71045; 71275; 80048; 80053; 82550; 83690; 83735; 83880; 84484; 85025; 87040; 93005; 93010; 93623; 93653; 96374; 96375; 96376; C1732; C1760; C1769; G0378; J0692; J1160; J1265; J1644; J1650; J1815; J2001; J2250; J2405; J2704; J2720; J3490; J7512; J7620; Q9967; U0003; U0005

== ENCOUNTER 2022-02-03 10:33 | Outpatient (CLI) | payer MEDICARE, BC | END 2022-02-03 10:34 | disposition home or self-care (01) | LOC: RAD 10:33 | PROVIDERS: ATTEND Internal Medicine Critical Care Medicine | DX: C34.90 Malignant neoplasm of unspecified part of unspecified bronchus or lung (principal); J98.11 Atelectasis; R91.8 Other nonspecific abnormal finding of lung field; J18.1 Lobar pneumonia, unspecified organism | CPT/HCPCS: 71046 ==

== ENCOUNTER 2022-02-05 15:40 | Inpatient (IN) | payer MEDICARE, BC ==
[~2022-02-05 15:40] MED LIST changes: -Acetaminophen 500 MG TAB ONE; +Iopamidol-370 76% 500 ML 1 ML ONE; -diphenhydrAMINE 25 MG CAP ONE
[2022-02-05 16:41] LABS: #Lymphocytes 0.5 thou/uL (1.20-3.40); #Monocytes 0.3 thou/uL (0.11-0.59); #Neutrophils 2.4 thou/uL (1.40-6.50); %Eosinophils 0.2 % (0.0-10.0); %Lymphocytes 14.7 % (21.0-51.0); %Monocytes 8.7 % (0.0-10.0); %Neutrophils 76.4 % (42.0-75.0); Hemoglobin 12.2 g/dL (14.0-18.0); Mean Corpuscular Hemoglobin 34.8 pg (27.0-31.0); Mean Platelet Volume 11.4 fL (7.4-10.4); Platelet Count 45 10x3/uL (130-400); RBC Distribution Width 15.5 % (11.5-14.5); Red Blood Cell (RBC) Count 3.52 mill/uL (4.70-6.10); White Blood Cell (WBC) Count 3.2 10x3/uL (4.8-10.8)
[2022-02-05 17:01] LABS: ALT (SGPT) 26 U/L (8-55); AST (SGOT) 45 U/L (5-34); Albumin 3.9 g/dL (3.4-4.8); Alkaline Phosphatase 91 U/L (40-110); Anion Gap 17 mmol/L (10-20); BUN (Urea Nitrogen) 19 mg/dL (8.4-25.7); Bilirubin, Total 0.7 mg/dL (0.2-1.2); Calc. Creatinine Clearance 0 mL/min (70-130); Calcium 8.7 mg/dL (7.8-10.44); Carbon Dioxide 21 mmol/L (23-31); Chloride 104 mmol/L (98-107); Estimated GFR 88; Globulin 3.1 g/dL (2.4-3.5); Glucose 187 mg/dL (80-115); Potassium 4.1 mmol/L (3.5-5.1); Sodium 138 mmol/L (136-145)
[2022-02-05] MEDS ORDERED: cefTRIAXone\\ROCEPHIN 1 GM VIAL ONE (19:12)
[2022-02-05] MEDS ORDERED: Azithromycin 500 MG VIAL ONE (20:06)
[2022-02-05 20:14] LABS: SARS-CoV-2 NAA Rapid Test DETECTED (NotDetected)
[2022-02-05] MEDS ORDERED: LORazepam 2 MG/ML SYR.(CARPUJECT) ONE (20:55)
[2022-02-05] MEDS ORDERED: Dexamethasone 10 MG/ML VIAL ONE (23:18)
[2022-02-05] MEDS ORDERED: Sodium Chloride 0.9% 1,000 ML IV SCH (23:45)
[2022-02-05] MEDS ORDERED: Ondansetron ODT 4 MG TAB SL PRN (23:45)
[2022-02-05] MEDS ORDERED: Ondansetron PF 4 MG/2 ML Vial IVP PRN (23:45)
[2022-02-05] MEDS ORDERED: Acetaminophen 325 MG TAB PO PRN (23:45)
[2022-02-06 00:43] VITALS: BMI 29.4
[2022-02-06] MEDS ORDERED: Albuterol Sulfate 2.5 mg/3 ml Neb NEB PRN (03:58)
[2022-02-06] MEDS ORDERED: Dextrose 5% in Water 1,000 ML IV PRN (03:59)
[2022-02-06] MEDS ORDERED: Dextrose 50% Abboject 50 ML SYRINGE SLOW IVP PRN (03:59)
[2022-02-06] MEDS ORDERED: REMDESIVIR 200 MG in Sodium Chloride 0.9% 250 ML 210 ML IV SCH (06:00)
[2022-02-06] MEDS: HumaLOG 300 UNITS/3 ML VIAL SC PRN ×4 (06:10→21:27)
[2022-02-06] MEDS: Benzonatate 100 MG CAP PO PRN ×2 (06:10→20:30)
[2022-02-06 06:28] LABS: ALT (SGPT) 23 U/L (8-55); AST (SGOT) 37 U/L (5-34); Albumin 3.5 g/dL (3.4-4.8); Alkaline Phosphatase 77 U/L (40-110); Anion Gap 14 mmol/L (10-20); BUN (Urea Nitrogen) 18 mg/dL (8.4-25.7); Bilirubin, Total 0.7 mg/dL (0.2-1.2); Calc. Creatinine Clearance 129 mL/min (70-130); Calcium 8.6 mg/dL (7.8-10.44); Carbon Dioxide 21 mmol/L (23-31); Chloride 105 mmol/L (98-107); Estimated GFR 97; Globulin 3.2 g/dL (2.4-3.5); Glucose 253 mg/dL (80-115); Potassium 4.3 mmol/L (3.5-5.1); Protein, Total 6.7 g/dL (5.8-8.1); Sodium 136 mmol/L (136-145)
[2022-02-06 07:59] LABS: Band 16 % (5-11); Lymphocytes 12 % (21-51); MDiff Complete? YES; Mean Corpuscular HGB CONC 33.3 g/dL (32.0-36.0); Mean Corpuscular Hemoglobin 35.4 pg (27.0-31.0); Mean Platelet Volume 11.2 fL (7.4-10.4); Monocytes 3 % (0-10); Neutrophil 69 % (42-75); Platelet Count 37 10x3/uL (130-400); Platelet Morphology Comment Appears Decreased; RBC Distribution Width 15.3 % (11.5-14.5); White Blood Cell (WBC) Count 1.3 10x3/uL (4.8-10.8)
[2022-02-06] MEDS: Ascorbic Acid 500 mg Chewable Tablet PO SCH (09:27)
[2022-02-06] MEDS: Clopidogrel Bisulfate 75 MG TAB PO SCH (09:27)
[2022-02-06] MEDS: Aspirin Chewable 81 MG TAB PO SCH (09:27)
[2022-02-06] MEDS: Dexamethasone 10 MG/ML VIAL SLOW IVP SCH ×2 (09:27→20:20)
[2022-02-06] MEDS: guaiFENesin/DM ER PO SCH ×2 (09:27→20:21)
[2022-02-06] MEDS: Zinc Sulfate 220 MG CAP PO SCH (09:28)
[2022-02-06] MEDS: Icosapent Ethyl 1 GM CAPSULE PO SCH ×2 (09:29→20:19)
[2022-02-06] MEDS ORDERED: Guaifenesin DM 100-10/5 ML UDCUP PO PRN (14:37)
[2022-02-06] MEDS: Cefepime 1 GM in Sodium Chloride 0.9% 100 ML IVPB SCH (15:57)
[2022-02-06] MEDS: Atorvastatin Calcium 10 MG TAB PO SCH (15:57)
[2022-02-06] MEDS: Amlodipine 5 MG TAB PO SCH (20:20)
[2022-02-06] MEDS: Amitriptyline HCl 25 MG TAB PO SCH (20:20)
[2022-02-06] MEDS ORDERED: Mometasone/Formoterol 60 PUFF AER INH SCH (21:00)
[2022-02-06] MEDS: Insulin Glargine 30 UNITS/0.3 ML VIAL SC SCH (21:26)
[2022-02-06] MEDS: Mometasone 100 MCG/Formoterol 5 MCG 120 PUFF INHALER INH SCH (21:33)
[2022-02-07] MEDS: Cefepime 1 GM in Sodium Chloride 0.9% 100 ML IVPB SCH ×2 (03:02→15:50)
[2022-02-07] MEDS: Vancomycin 1.5 GRAM/300 ML BAG 1.5 GM in Premix Bag 1 BAG IVPB SCH ×2 (04:29→16:59)
[2022-02-07] MEDS: HumaLOG 300 UNITS/3 ML VIAL SC PRN ×4 (05:29→21:48)
[2022-02-07 07:05] LABS: Hemoglobin 10.9 g/dL (14.0-18.0); Mean Corpuscular HGB CONC 33.1 g/dL (32.0-36.0); Mean Corpuscular Hemoglobin 35.5 pg (27.0-31.0); Mean Platelet Volume 11.8 fL (7.4-10.4); Platelet Count 37 10x3/uL (130-400); RBC Distribution Width 14.9 % (11.5-14.5); Red Blood Cell (RBC) Count 3.06 mill/uL (4.70-6.10); White Blood Cell (WBC) Count 1.4 10x3/uL (4.8-10.8)
[2022-02-07 07:12] LABS: Anion Gap 15 mmol/L (10-20); BUN (Urea Nitrogen) 25 mg/dL (8.4-25.7); Calc. Creatinine Clearance 132 mL/min (70-130); Carbon Dioxide 20 mmol/L (23-31); Chloride 109 mmol/L (98-107); Potassium 4.1 mmol/L (3.5-5.1); Sodium 140 mmol/L (136-145)
[2022-02-07 07:13] LABS: ALT (SGPT) 25 U/L (8-55); AST (SGOT) 35 U/L (5-34); Albumin 3.4 g/dL (3.4-4.8); Alkaline Phosphatase 72 U/L (40-110); Bilirubin, Total 0.6 mg/dL (0.2-1.2); Calcium 8.6 mg/dL (7.8-10.44); Estimated GFR 97; Glucose 267 mg/dL (80-115); Protein, Total 6.4 g/dL (5.8-8.1)
[2022-02-07 08:10] LABS: #Lymphocytes 0.2 thou/uL (1.20-3.40); #Monocytes 0.1 thou/uL (0.11-0.59); #Neutrophils 1.1 thou/uL (1.40-6.50); %Eosinophils 0.2 % (0.0-10.0); %Lymphocytes 13.2 % (21.0-51.0); %Monocytes 8.2 % (0.0-10.0); %Neutrophils 78.4 % (42.0-75.0); MDiff Complete? YES; Macrocytosis SLIGHT = 6-15 cells (100X) (0-5/hpf); Platelet Morphology Comment Appears Decreased; Tear Drops SLIGHT = 2-5 cells (100X) (0-1/hpf)
[2022-02-07] MEDS: Aspirin Chewable 81 MG TAB PO SCH (08:52)
[2022-02-07] MEDS: guaiFENesin/DM ER PO SCH ×2 (08:52→21:45)
[2022-02-07] MEDS: Dexamethasone 10 MG/ML VIAL SLOW IVP SCH ×2 (08:52→21:46)
[2022-02-07] MEDS: Icosapent Ethyl 1 GM CAPSULE PO SCH ×2 (08:52→21:46)
[2022-02-07] MEDS: Allopurinol 300 MG TAB PO SCH (08:52)
[2022-02-07] MEDS: Clopidogrel Bisulfate 75 MG TAB PO SCH (08:53)
[2022-02-07] MEDS: Colchicine 0.6 MG TAB PO SCH (08:53)
[2022-02-07] MEDS: Empagliflozin 25 MG TAB PO SCH (08:53)
[2022-02-07] MEDS: Zinc Sulfate 220 MG CAP PO SCH (08:53)
[2022-02-07] MEDS: Ascorbic Acid 500 mg Chewable Tablet PO SCH (08:53)
[2022-02-07] MEDS: REMDESIVIR 100 MG in Sodium Chloride 0.9% 250 ML 230 ML IV SCH (08:56)
[2022-02-07] MEDS ORDERED: Non-Formulary Item 1 EACH (Colchicine [Colchicine] 0.6 MG Capsule) PO SCH (09:00)
[2022-02-07] MEDS: Atorvastatin Calcium 10 MG TAB PO SCH (17:05)
[2022-02-07] MEDS: Amitriptyline HCl 25 MG TAB PO SCH (21:45)
[2022-02-07] MEDS: Mometasone 100 MCG/Formoterol 5 MCG 120 PUFF INHALER INH SCH (21:45)
[2022-02-07] MEDS: Amlodipine 5 MG TAB PO SCH (21:46)
[2022-02-07] MEDS: Insulin Glargine 30 UNITS/0.3 ML VIAL SC SCH (21:47)
[2022-02-08] MEDS ORDERED: Acetaminophen 325 MG TAB PO PRN (03:03)
[2022-02-08] MEDS: Cefepime 1 GM in Sodium Chloride 0.9% 100 ML IVPB SCH ×2 (03:09→15:45)
[2022-02-08] MEDS: Vancomycin 1.5 GRAM/300 ML BAG 1.5 GM in Premix Bag 1 BAG IVPB SCH (04:40)
[2022-02-08] MEDS: HumaLOG 300 UNITS/3 ML VIAL SC PRN ×3 (04:48→17:10)
[2022-02-08 06:50] LABS: ALT (SGPT) 25 U/L (8-55); AST (SGOT) 32 U/L (5-34); Albumin 3.6 g/dL (3.4-4.8); Alkaline Phosphatase 69 U/L (40-110); Anion Gap 14 mmol/L (10-20); BUN (Urea Nitrogen) 31 mg/dL (8.4-25.7); Bilirubin, Total 0.8 mg/dL (0.2-1.2); Calc. Creatinine Clearance 129 mL/min (70-130); Calcium 8.5 mg/dL (7.8-10.44); Carbon Dioxide 21 mmol/L (23-31); Chloride 107 mmol/L (98-107); Estimated GFR 97; Globulin 3.1 g/dL (2.4-3.5); Glucose 206 mg/dL (80-115); Potassium 3.9 mmol/L (3.5-5.1); Protein, Total 6.7 g/dL (5.8-8.1); Sodium 138 mmol/L (136-145)
[2022-02-08 07:13] LABS: #Lymphocytes 0.3 thou/uL (1.20-3.40); #Monocytes 0.1 thou/uL (0.11-0.59); #Neutrophils 2.3 thou/uL (1.40-6.50); %Eosinophils 0.1 % (0.0-10.0); %Monocytes 4.4 % (0.0-10.0); %Neutrophils 84.5 % (42.0-75.0); Hemoglobin 11.3 g/dL (14.0-18.0); Mean Corpuscular HGB CONC 33.3 g/dL (32.0-36.0); Mean Corpuscular Hemoglobin 35.1 pg (27.0-31.0); Mean Platelet Volume 11.8 fL (7.4-10.4); Platelet Count 41 10x3/uL (130-400); RBC Distribution Width 14.9 % (11.5-14.5); Red Blood Cell (RBC) Count 3.22 mill/uL (4.70-6.10); White Blood Cell (WBC) Count 2.7 10x3/uL (4.8-10.8)
[2022-02-08] MEDS: Icosapent Ethyl 1 GM CAPSULE PO SCH ×2 (08:45→21:54)
[2022-02-08] MEDS: REMDESIVIR 100 MG in Sodium Chloride 0.9% 250 ML 230 ML IV SCH (08:45)
[2022-02-08] MEDS: Empagliflozin 25 MG TAB PO SCH (08:45)
[2022-02-08] MEDS: Ascorbic Acid 500 mg Chewable Tablet PO SCH (08:45)
[2022-02-08] MEDS: Colchicine 0.6 MG TAB PO SCH (08:45)
[2022-02-08] MEDS: Clopidogrel Bisulfate 75 MG TAB PO SCH (08:45)
[2022-02-08] MEDS: Aspirin Chewable 81 MG TAB PO SCH (08:45)
[2022-02-08] MEDS: guaiFENesin/DM ER PO SCH ×2 (08:46→21:56)
[2022-02-08] MEDS: Zinc Sulfate 220 MG CAP PO SCH (08:46)
[2022-02-08] MEDS: Allopurinol 300 MG TAB PO SCH (08:46)
[2022-02-08] MEDS: Dexamethasone 10 MG/ML VIAL SLOW IVP SCH (08:46)
[2022-02-08] MEDS ORDERED: Melatonin 3 MG TAB PO PRN (13:57)
[2022-02-08 15:26] LABS: Vancomycin, Trough 11.2 ug/mL
[2022-02-08] MEDS: Atorvastatin Calcium 10 MG TAB PO SCH (17:10)
[2022-02-08] MEDS: Amlodipine 5 MG TAB PO SCH (21:52)
[2022-02-08] MEDS: Cholecalciferol 1,000 UNITS (25 MCG) TAB PO SCH (21:56)
[2022-02-08] MEDS: Amitriptyline HCl 25 MG TAB PO SCH (21:56)
[2022-02-08] MEDS: Insulin Glargine 30 UNITS/0.3 ML VIAL SC SCH (21:59)
[2022-02-08] MEDS: Mometasone 100 MCG/Formoterol 5 MCG 120 PUFF INHALER INH SCH (21:59)
[2022-02-09 07:28] LABS: ALT (SGPT) 31 U/L (8-55); AST (SGOT) 28 U/L (5-34); Albumin 3.6 g/dL (3.4-4.8); Alkaline Phosphatase 63 U/L (40-110); Bilirubin, Direct 0.3 mg/dL (0.1-0.3); Bilirubin, Total 0.9 mg/dL (0.2-1.2); Protein, Total 6.8 g/dL (5.8-8.1)
[2022-02-09 07:29] LABS: ALT (SGPT) 30 U/L (8-55); AST (SGOT) 29 U/L (5-34); Albumin 3.7 g/dL (3.4-4.8); Alkaline Phosphatase 61 U/L (40-110); Anion Gap 14 mmol/L (10-20); BUN (Urea Nitrogen) 33 mg/dL (8.4-25.7); Bilirubin, Total 0.9 mg/dL (0.2-1.2); Calc. Creatinine Clearance 141 mL/min (70-130); Calcium 8.8 mg/dL (7.8-10.44); Carbon Dioxide 24 mmol/L (23-31); Chloride 106 mmol/L (98-107); Estimated GFR 99; Globulin 3.2 g/dL (2.4-3.5); Glucose 108 mg/dL (80-115); Potassium 3.7 mmol/L (3.5-5.1); Protein, Total 6.9 g/dL (5.8-8.1); Sodium 140 mmol/L (136-145)
[2022-02-09 07:31] LABS: Hemoglobin 11.9 g/dL (14.0-18.0); Mean Corpuscular HGB CONC 34.2 g/dL (32.0-36.0); Mean Corpuscular Hemoglobin 35.5 pg (27.0-31.0); Mean Platelet Volume 11.3 fL (7.4-10.4); Platelet Count 44 10x3/uL (130-400); Red Blood Cell (RBC) Count 3.35 mill/uL (4.70-6.10); White Blood Cell (WBC) Count 3.1 10x3/uL (4.8-10.8)
[2022-02-09] MEDS: REMDESIVIR 100 MG in Sodium Chloride 0.9% 250 ML 230 ML IV SCH (08:45)
[2022-02-09] MEDS: Cefdinir 300 MG CAP PO SCH (08:46)
[2022-02-09] MEDS: Icosapent Ethyl 1 GM CAPSULE PO SCH ×2 (08:46→21:39)
[2022-02-09] MEDS: Aspirin Chewable 81 MG TAB PO SCH (08:46)
[2022-02-09] MEDS: guaiFENesin/DM ER PO SCH ×2 (08:46→21:41)
[2022-02-09] MEDS: Zinc Sulfate 220 MG CAP PO SCH (08:47)
[2022-02-09] MEDS: Allopurinol 300 MG TAB PO SCH (08:47)
[2022-02-09] MEDS: Empagliflozin 25 MG TAB PO SCH (08:47)
[2022-02-09] MEDS: Clopidogrel Bisulfate 75 MG TAB PO SCH (08:47)
[2022-02-09] MEDS: Ascorbic Acid 500 mg Chewable Tablet PO SCH (08:47)
[2022-02-09] MEDS: Dexamethasone 4 mg/ml Vial SLOW IVP SCH (08:47)
[2022-02-09] MEDS: Colchicine 0.6 MG TAB PO SCH (08:47)
[2022-02-09 10:41] LABS: Band 7 % (5-11); Lymphocytes 12 % (21-51); MDiff Complete? YES; Monocytes 3 % (0-10); Neutrophil 73 % (42-75); Platelet Morphology Comment Appears Decreased; Polychromasia SLIGHT = 2-3 cells (100X) (0-2/hpf); Reactive Lymphocytes 5 % (0-10)
[2022-02-09] MEDS: HumaLOG 300 UNITS/3 ML VIAL SC PRN ×2 (12:55→18:07)
[2022-02-09] MEDS: Atorvastatin Calcium 10 MG TAB PO SCH (18:06)
[2022-02-09] MEDS: Mometasone 100 MCG/Formoterol 5 MCG 120 PUFF INHALER INH SCH (21:39)
[2022-02-09] MEDS: Amitriptyline HCl 25 MG TAB PO SCH (21:42)
[2022-02-09] MEDS: Cholecalciferol 1,000 UNITS (25 MCG) TAB PO SCH (21:42)
[2022-02-09] MEDS: Amlodipine 5 MG TAB PO SCH (21:42)
[2022-02-09] MEDS: Insulin Glargine 30 UNITS/0.3 ML VIAL SC SCH (21:45)
[2022-02-10 01:46] VITALS: TEMP 97.7
[2022-02-10 07:55] LABS: ALT (SGPT) 29 U/L (8-55); AST (SGOT) 30 U/L (5-34); Albumin 3.5 g/dL (3.4-4.8); Alkaline Phosphatase 56 U/L (40-110); Bilirubin, Direct 0.4 mg/dL (0.1-0.3); Bilirubin, Total 1.1 mg/dL (0.2-1.2); Protein, Total 6.3 g/dL (5.8-8.1)
[2022-02-10] MEDS: Aspirin Chewable 81 MG TAB PO SCH (09:05)
[2022-02-10] MEDS: Cefdinir 300 MG CAP PO SCH (09:05)
[2022-02-10] MEDS: Icosapent Ethyl 1 GM CAPSULE PO SCH (09:05)
[2022-02-10] MEDS: Allopurinol 300 MG TAB PO SCH (09:06)
[2022-02-10] MEDS: Clopidogrel Bisulfate 75 MG TAB PO SCH (09:06)
[2022-02-10] MEDS: Dexamethasone 4 mg/ml Vial SLOW IVP SCH (09:06)
[2022-02-10] MEDS: Empagliflozin 25 MG TAB PO SCH (09:06)
[2022-02-10] MEDS: guaiFENesin/DM ER PO SCH (09:06)
[2022-02-10] MEDS: Colchicine 0.6 MG TAB PO SCH (09:06)
[2022-02-10] MEDS: Ascorbic Acid 500 mg Chewable Tablet PO SCH (09:06)
[2022-02-10] MEDS: REMDESIVIR 100 MG in Sodium Chloride 0.9% 250 ML 230 ML IV SCH (09:07)
[2022-02-10] MEDS: Zinc Sulfate 220 MG CAP PO SCH (09:10)
[2022-02-10] MEDS: HumaLOG 300 UNITS/3 ML VIAL SC PRN (12:17)
[2022-02-10 15:49] VITALS: BP 142/67
== END 2022-02-10 15:40 | disposition home health service (06) | DRG 177 ==
LOC: ERS 15:40 → T4-B 19:58
PROVIDERS: ADMIT Internal Medicine; ATTEND Internal Medicine
PROC: 8E0ZXY6 Isolation (ICD-10-PCS; principal; 2022-02-05)
PROC: XW033E5 Introduction of Remdesivir Anti-infective into Peripheral Vein, Percutaneous Approach, New Technology Group 5 (ICD-10-PCS; 2022-02-06)
DX: U07.1 COVID-19 (principal); J12.82 Pneumonia due to coronavirus disease 2019; J96.01 Acute respiratory failure with hypoxia; C34.90 Malignant neoplasm of unspecified part of unspecified bronchus or lung; I25.110 Atherosclerotic heart disease of native coronary artery with unstable angina pectoris; I48.3 Typical atrial flutter; D61.818 Other pancytopenia; Z20.822 Contact with and (suspected) exposure to COVID-19; R53.81 Other malaise; E78.00 Pure hypercholesterolemia, unspecified; D46.9 Myelodysplastic syndrome, unspecified; R91.8 Other nonspecific abnormal finding of lung field; N18.30 Chronic kidney disease, stage 3 unspecified; E11.22 Type 2 diabetes mellitus with diabetic chronic kidney disease; I12.9 Hypertensive chronic kidney disease with stage 1 through stage 4 chronic kidney disease, or unspecified chronic kidney disease; Z79.899 Other long term (current) drug therapy; Z79.82 Long term (current) use of aspirin; Z79.02 Long term (current) use of antithrombotics/antiplatelets; Z79.4 Long term (current) use of insulin; Z88.6 Allergy status to analgesic agent; Z88.8 Allergy status to other drugs, medicaments and biological substances; Z90.49 Acquired absence of other specified parts of digestive tract; Z87.891 Personal history of nicotine dependence; Z80.9 Family history of malignant neoplasm, unspecified
CPT/HCPCS: 36415; 36416; 71045; 71275; 80053; 80076; 80202; 83880; 84484; 85025; 86140; 87040; 93005; 94660; 94760; 96365; 96367; 96375; J0248; J0456; J0692; J0696; J1100; J1815; J2060; J3370; J3490; J7030; J7050; Q9967

== ENCOUNTER 2022-03-03 13:03 | Outpatient (CLI) | payer MEDICARE, BC | END 2022-03-03 13:04 | disposition home or self-care (01) | LOC: RAD 13:03 | PROVIDERS: ATTEND Internal Medicine Critical Care Medicine | DX: R06.00 Dyspnea, unspecified (principal) | CPT/HCPCS: 71046 ==

== ENCOUNTER 2022-04-16 11:41 | Outpatient (CLI) | payer MEDICARE, BC | END 2022-04-16 11:42 | disposition home or self-care (01) | LOC: RAD 11:41 | PROVIDERS: ATTEND Internal Medicine Critical Care Medicine | DX: R06.00 Dyspnea, unspecified (principal) | CPT/HCPCS: 71046 ==

== ENCOUNTER 2022-09-12 01:09 | Inpatient (IN) | payer MEDICARE, BC ==
[2022-09-12 04:41] VITALS: BMI 32.3
[2022-09-12] MEDS ORDERED: Senokot S 8.6-50 MG TAB PO PRN (05:08)
[2022-09-12] MEDS ORDERED: Acetaminophen 325 MG TAB PO PRN (05:08)
[2022-09-12] MEDS ORDERED: Ondansetron ODT 4 MG TAB PO PRN (05:08)
[2022-09-12] MEDS ORDERED: Calcium Carbonate 500 MG ChewTAB PO PRN (05:08)
[2022-09-12] MEDS ORDERED: Ipratropium/Albuterol 3 ML NEB NEB PRN (05:10)
[2022-09-12] MEDS ORDERED: HumaLOG 300 UNITS/3 ML VIAL SC PRN (05:11)
[2022-09-12] MEDS ORDERED: Dextrose 5% in Water 1,000 ML IV PRN (05:11)
[2022-09-12] MEDS ORDERED: Glucagon 1 MG/ML KIT IM PRN (05:11)
[2022-09-12] MEDS ORDERED: Dextrose 50% Abboject 50 ML SYRINGE SLOW IVP PRN (05:11)
[2022-09-12 06:07] LABS: #Monocytes 0.1 thou/uL (0.11-0.59); %Monocytes 2.9 % (0.0-10.0); %Neutrophils 89.2 % (42.0-75.0); Hematocrit 36.6 % (42.0-52.0); Hemoglobin 11.5 g/dL (14.0-18.0); Mean Corpuscular HGB CONC 31.4 g/dL (32.0-36.0); Mean Corpuscular Volume 104.9 fl (78.0-98.0); Mean Platelet Volume 11.3 fL (7.4-10.4); RBC Distribution Width 16.6 % (11.5-14.5); Red Blood Cell (RBC) Count 3.49 mill/uL (4.70-6.10); White Blood Cell (WBC) Count 3.4 10x3/uL (4.8-10.8)
[2022-09-12] MEDS: HumaLOG 300 UNITS/3 ML VIAL SC PRN ×3 (06:09→18:40)
[2022-09-12 06:11] LABS: Platelet Count 100 10x3/uL (130-400)
[2022-09-12 06:35] LABS: ALT (SGPT) 19 U/L (8-55); AST (SGOT) 18 U/L (5-34); Alkaline Phosphatase 61 U/L (40-110); Anion Gap 18 mmol/L (10-20); BUN (Urea Nitrogen) 18 mg/dL (8.4-25.7); Bilirubin, Total 0.6 mg/dL (0.2-1.2); Calc. Creatinine Clearance 96 mL/min (70-130); Calcium 9.4 mg/dL (7.8-10.44); Carbon Dioxide 20 mmol/L (23-31); Chloride 107 mmol/L (98-107); Estimated GFR 73; Globulin 3.3 g/dL (2.4-3.5); Glucose 280 mg/dL (80-115); Potassium 3.6 mmol/L (3.5-5.1); Protein, Total 7.3 g/dL (5.8-8.1); Sodium 141 mmol/L (136-145)
[2022-09-12] MEDS: Mometasone 100 MCG HFA INHALER (RT USE) INH SCH ×2 (07:33→18:49)
[2022-09-12] MEDS: Ipratropium/Albuterol 3 ML NEB NEB SCH ×3 (07:34→18:46)
[2022-09-12] MEDS ORDERED: predniSONE 5 MG TAB PO SCH (08:00)
[2022-09-12] MEDS: Aspirin Chewable 81 MG TAB PO SCH (08:51)
[2022-09-12] MEDS: Famotidine 20 MG TAB PO SCH ×2 (08:51→21:09)
[2022-09-12] MEDS: Clopidogrel Bisulfate 75 MG TAB PO SCH (08:51)
[2022-09-12] MEDS: Gabapentin 300 MG CAP PO SCH ×3 (08:53→21:07)
[2022-09-12] MEDS: Icosapent Ethyl 1 GM CAPSULE PO SCH ×2 (08:53→21:06)
[2022-09-12] MEDS: Fludrocortisone Acetate 0.1 MG TAB PO SCH (08:54)
[2022-09-12] MEDS: Empagliflozin 25 MG TAB PO SCH (08:55)
[2022-09-12] MEDS ORDERED: Iopamidol-370 76% 500 ML MDV (1 ML CHARGE) ONE (09:34)
[2022-09-12] MEDS ORDERED: Cefdinir 300 MG CAP PO SCH (11:30)
[2022-09-12] MEDS ORDERED: predniSONE 20 MG TAB PO SCH (11:30)
[2022-09-12] MEDS ORDERED: Insulin Glargine 30 UNITS/0.3 ML VIAL SC SCH (21:00)
[2022-09-12] MEDS ORDERED: Zolpidem Tartrate 5 MG TAB PO SCH (21:00)
[2022-09-12] MEDS ORDERED: Allopurinol 300 MG TAB PO SCH (21:00)
[2022-09-12] MEDS ORDERED: Atorvastatin Calcium 10 MG TAB PO SCH (21:00)
[2022-09-12] MEDS ORDERED: Famotidine 20 MG TAB PO SCH (21:00)
[2022-09-13] MEDS: Ipratropium/Albuterol 3 ML NEB NEB SCH ×2 (01:15→07:22)
[2022-09-13 04:58] LABS: #Monocytes 0.7 thou/uL (0.11-0.59); #Neutrophils 3.9 thou/uL (1.40-6.50); %Basophils 0.2 % (0.0-1.0); %Eosinophils 0.2 % (0.0-10.0); %Lymphocytes 9.4 % (21.0-51.0); %Monocytes 12.7 % (0.0-10.0); %Neutrophils 76.9 % (42.0-75.0); Hematocrit 35.7 % (42.0-52.0); Hemoglobin 10.9 g/dL (14.0-18.0); Mean Corpuscular HGB CONC 30.5 g/dL (32.0-36.0); Mean Corpuscular Hemoglobin 32.2 pg (27.0-31.0); Mean Corpuscular Volume 105.6 fl (78.0-98.0); Mean Platelet Volume 11.1 fL (7.4-10.4); RBC Distribution Width 16.8 % (11.5-14.5); Red Blood Cell (RBC) Count 3.38 mill/uL (4.70-6.10); White Blood Cell (WBC) Count 5.1 10x3/uL (4.8-10.8)
[2022-09-13 05:01] LABS: Platelet Count 96 10x3/uL (130-400)
[2022-09-13 05:25] LABS: Anion Gap 14 mmol/L (10-20); BUN (Urea Nitrogen) 20 mg/dL (8.4-25.7); Calc. Creatinine Clearance 120 mL/min (70-130); Calcium 9.2 mg/dL (7.8-10.44); Carbon Dioxide 23 mmol/L (23-31); Chloride 107 mmol/L (98-107); Estimated GFR 94; Glucose 226 mg/dL (80-115); Potassium 3.8 mmol/L (3.5-5.1); Sodium 140 mmol/L (136-145)
[2022-09-13] MEDS: HumaLOG 300 UNITS/3 ML VIAL SC PRN ×2 (06:06→12:56)
[2022-09-13] MEDS: Mometasone 100 MCG HFA INHALER (RT USE) INH SCH (07:20)
[2022-09-13] MEDS ORDERED: predniSONE 20 MG TAB PO SCH (08:00)
[2022-09-13] MEDS ORDERED: Cefdinir 300 MG CAP PO SCH (09:00)
[2022-09-13] MEDS: Gabapentin 300 MG CAP PO SCH (09:42)
[2022-09-13] MEDS: Famotidine 20 MG TAB PO SCH (09:43)
[2022-09-13] MEDS: Aspirin Chewable 81 MG TAB PO SCH (09:44)
[2022-09-13] MEDS: Fludrocortisone Acetate 0.1 MG TAB PO SCH (09:44)
[2022-09-13] MEDS: Icosapent Ethyl 1 GM CAPSULE PO SCH (09:44)
[2022-09-13] MEDS: Clopidogrel Bisulfate 75 MG TAB PO SCH (09:44)
[2022-09-13] MEDS: Empagliflozin 25 MG TAB PO SCH (09:55)
[2022-09-13 11:40] VITALS: BP 150/70; TEMP 97.9
== END 2022-09-13 14:31 | disposition home or self-care (01) | DRG 180 ==
LOC: 2NO 01:09
PROVIDERS: ADMIT Student in an Organized Health Care Education/Training Program; ATTEND Internal Medicine
DX: C34.90 Malignant neoplasm of unspecified part of unspecified bronchus or lung (principal); J96.01 Acute respiratory failure with hypoxia; J70.0 Acute pulmonary manifestations due to radiation; I48.92 Unspecified atrial flutter; I25.10 Atherosclerotic heart disease of native coronary artery without angina pectoris; E11.40 Type 2 diabetes mellitus with diabetic neuropathy, unspecified; I10 Essential (primary) hypertension; E78.5 Hyperlipidemia, unspecified; K21.9 Gastro-esophageal reflux disease without esophagitis; I73.9 Peripheral vascular disease, unspecified; D46.9 Myelodysplastic syndrome, unspecified; Z95.1 Presence of aortocoronary bypass graft; Z90.49 Acquired absence of other specified parts of digestive tract; Z87.891 Personal history of nicotine dependence; Z79.4 Long term (current) use of insulin; Z79.82 Long term (current) use of aspirin; Z88.8 Allergy status to other drugs, medicaments and biological substances
CPT/HCPCS: 36415; 36416; 71045; 71260; 80048; 80053; 83880; 84484; 85025; 93005; 94640; 94644; 94645; 94760; 96365; 96375; J1650; J1815; J2930; J3475; J7512; J7611; J7620; Q9967

== ENCOUNTER 2022-09-24 11:45 | Outpatient (CLI) | payer MEDICARE, BC | END 2022-09-24 11:46 | disposition home or self-care (01) | LOC: PET 11:45 | PROVIDERS: ATTEND Internal Medicine Hematology & Oncology | DX: C34.82 Malignant neoplasm of overlapping sites of left bronchus and lung (principal); C34.31 Malignant neoplasm of lower lobe, right bronchus or lung; C34.11 Malignant neoplasm of upper lobe, right bronchus or lung; R91.1 Solitary pulmonary nodule | CPT/HCPCS: 78815; A9552 ==

== ENCOUNTER 2022-09-30 07:41 | Day surgery (SDC) | payer MEDICARE, BC ==
[2022-09-29 14:35] VITALS: BMI 29.0
[2022-09-30] MEDS ORDERED: fentaNYL PF 100 MCG/2 ML SYRINGE ONE (10:11)
[2022-09-30] MEDS ORDERED: Lidocaine 1% PF 5 ML VIAL ONE (10:36)
[2022-09-30] MEDS ORDERED: PROPOFOL 200 MG/20 ML VIAL ONE (10:36)
[2022-09-30] MEDS ORDERED: Rocuronium Bromide 10 MG/ML (10ML VIAL) ONE (10:36)
[2022-09-30] MEDS ORDERED: Succinylcholine 200 MG/10 ml SYRINGE FS ONE (10:36)
== END 2022-09-30 13:30 | disposition home or self-care (01) ==
LOC: SDC 07:41
PROVIDERS: ATTEND Internal Medicine Critical Care Medicine
PROC: 0B9F7ZX Drainage of Right Lower Lung Lobe, Via Natural or Artificial Opening, Diagnostic (ICD-10-PCS; principal; 2022-09-30)
DX: C34.90 Malignant neoplasm of unspecified part of unspecified bronchus or lung (principal); I25.2 Old myocardial infarction; E11.9 Type 2 diabetes mellitus without complications; H91.90 Unspecified hearing loss, unspecified ear; J18.9 Pneumonia, unspecified organism; M06.9 Rheumatoid arthritis, unspecified; I25.10 Atherosclerotic heart disease of native coronary artery without angina pectoris; I10 Essential (primary) hypertension; Z79.82 Long term (current) use of aspirin; Z87.891 Personal history of nicotine dependence; Z88.1 Allergy status to other antibiotic agents; Z88.5 Allergy status to narcotic agent; Z98.890 Other specified postprocedural states; Z79.899 Other long term (current) drug therapy
CPT/HCPCS: 87070; 87102; 87116; 87205; 87206; 88112; 88305; 88341; 88342; J2704

== ENCOUNTER 2022-10-04 07:17 | Inpatient (IN) | payer MEDICARE, BC ==
[2022-10-04] MEDS ORDERED: methylPREDNISolone Sod Succ/PF 125 MG/2 ML VIAL ONE (07:47)
[2022-10-04] MEDS ORDERED: Ipratropium/Albuterol 3 ML NEB ONE ×3 (07:47→09:09)
[2022-10-04 07:54] LABS: #Monocytes 0.3 thou/uL (0.11-0.59); #Neutrophils 3.7 thou/uL (1.40-6.50); %Basophils 0.2 % (0.0-1.0); %Eosinophils 0.7 % (0.0-10.0); %Lymphocytes 9.1 % (21.0-51.0); %Monocytes 6.7 % (0.0-10.0); %Neutrophils 81.1 % (42.0-75.0); Hematocrit 36.7 % (42.0-52.0); Hemoglobin 11.6 g/dL (14.0-18.0); Mean Corpuscular HGB CONC 31.6 g/dL (32.0-36.0); Mean Corpuscular Hemoglobin 33.4 pg (27.0-31.0); Mean Corpuscular Volume 105.8 fl (78.0-98.0); Mean Platelet Volume 10.1 fL (7.4-10.4); RBC Distribution Width 17.8 % (11.5-14.5); Red Blood Cell (RBC) Count 3.47 mill/uL (4.70-6.10); White Blood Cell (WBC) Count 4.6 10x3/uL (4.8-10.8)
[2022-10-04 07:58] LABS: Platelet Count 60 10x3/uL (130-400)
[2022-10-04 08:19] LABS: ALT (SGPT) 33 U/L (8-55); AST (SGOT) 27 U/L (5-34); Albumin 3.8 g/dL (3.4-4.8); Alkaline Phosphatase 71 U/L (40-110); Anion Gap 12 mmol/L (10-20); BUN (Urea Nitrogen) 22 mg/dL (8.4-25.7); Calc. Creatinine Clearance 0 mL/min (70-130); Calcium 8.7 mg/dL (7.8-10.44); Carbon Dioxide 28 mmol/L (23-31); Chloride 105 mmol/L (98-107); Estimated GFR 85; Globulin 2.6 g/dL (2.4-3.5); Glucose 152 mg/dL (80-115); Protein, Total 6.4 g/dL (5.8-8.1); Sodium 142 mmol/L (136-145)
[2022-10-04 08:36] LABS: Troponin I 0.375 ng/mL (< 0.028)
[2022-10-04] MEDS ORDERED: Iopamidol-370 76% 500 ML MDV (1 ML CHARGE) ONE (08:56)
[2022-10-04] MEDS ORDERED: Magnesium 2 GM/50 ML BAG (IN WATER) ONE (09:17)
[2022-10-04] MEDS ORDERED: Furosemide 40 MG/4 ML VIAL ONE (10:36)
[2022-10-04 10:49] LABS: Actual Bicarbonate (HCO3a) 26.8 mEq/L (22-28); Analyzer IN Cardio ER; Base Excess (BEa) 2.2 mEq/L (-2.0 to +3.0); CO2 Tension 41.5 mmHg (35.0-45.0); Calcium, Ionized (arterial) 1.11 mmol/L (1.12-1.30); Carboxyhemoglobin (COHb) 0.6 gm% (0.0-3.0); Hematocrit-ABG 37 % (42.0-52.0); Hemoglobin (Hb) 12.5 g/dL (14.0-18.0); O2 Tension (PaO2), arterial 86.3 mmHg (> 80.0); Potassium - ABG Lab 3.39 mmol/L (3.70-5.30); pH, Arterial 7.428 (7.35-7.45)
[2022-10-04] MEDS ORDERED: Cefepime 2 GM VIAL ONE (10:49)
[2022-10-04 10:50] LABS: ALV-art Gradient 61.465 mmHg (0-20); Puncture Site RRA
[2022-10-04] MEDS ORDERED: Vancomycin 1.5 GRAM/300 ML BAG 1.5 GM in Premix Bag 1 BAG IVPB SCH (11:00)
[2022-10-04 11:27] LABS: Troponin I 0.376 ng/mL (< 0.028)
[2022-10-04] MEDS ORDERED: Ondansetron PF 4 MG/2 ML Vial IVP PRN (12:23)
[2022-10-04] MEDS ORDERED: Ondansetron ODT 4 MG TAB PO PRN (12:23)
[2022-10-04] MEDS ORDERED: Acetaminophen 325 MG TAB PO PRN (12:23)
[2022-10-04 15:32] LABS: Lactic Acid 3.4 mmol/L (0.5-2.2)
[2022-10-04] MEDS: Ipratropium/Albuterol 3 ML NEB NEB SCH ×3 (16:21→23:17)
[2022-10-04 16:27] VITALS: BMI 33.7
[2022-10-04] MEDS: Gabapentin 300 MG CAP PO SCH ×2 (17:05→21:16)
[2022-10-04] MEDS: methylPREDNISolone Sod Succ 40 MG VIAL IVP SCH ×2 (17:34→23:19)
[2022-10-04] MEDS: Mometasone 100 MCG/PUFF (1 INHALER) INH SCH (19:46)
[2022-10-04] MEDS: Colchicine 0.6 MG TAB PO SCH (21:16)
[2022-10-04] MEDS: Zolpidem Tartrate 5 MG TAB PO SCH (21:16)
[2022-10-04] MEDS: Allopurinol 300 MG TAB PO SCH (21:16)
[2022-10-04] MEDS: Famotidine 20 MG TAB PO SCH (21:16)
[2022-10-04] MEDS: Atorvastatin Calcium 10 MG TAB PO SCH (21:16)
[2022-10-04] MEDS: Icosapent Ethyl 1 GM CAPSULE PO SCH (21:19)
[2022-10-05] MEDS: methylPREDNISolone Sod Succ 40 MG VIAL IVP SCH ×2 (06:10→20:54)
[2022-10-05 06:37] LABS: #Monocytes 0.2 thou/uL (0.11-0.59); #Neutrophils 3.5 thou/uL (1.40-6.50); %Basophils 0.2 % (0.0-1.0); %Lymphocytes 6.7 % (21.0-51.0); %Monocytes 4.9 % (0.0-10.0); Hematocrit 36.6 % (42.0-52.0); Hemoglobin 11.5 g/dL (14.0-18.0); Mean Corpuscular HGB CONC 31.4 g/dL (32.0-36.0); Mean Corpuscular Hemoglobin 33.2 pg (27.0-31.0); Mean Corpuscular Volume 105.8 fl (78.0-98.0); Mean Platelet Volume 9.7 fL (7.4-10.4); RBC Distribution Width 17.6 % (11.5-14.5); Red Blood Cell (RBC) Count 3.46 mill/uL (4.70-6.10); White Blood Cell (WBC) Count 4.1 10x3/uL (4.8-10.8)
[2022-10-05 06:41] LABS: Platelet Count 58 10x3/uL (130-400)
[2022-10-05] MEDS: Ipratropium/Albuterol 3 ML NEB NEB SCH ×4 (06:54→23:47)
[2022-10-05] MEDS: Mometasone 100 MCG/PUFF (1 INHALER) INH SCH ×2 (06:56→19:09)
[2022-10-05 07:02] LABS: Anion Gap 16 mmol/L (10-20); BUN (Urea Nitrogen) 20 mg/dL (8.4-25.7); Calc. Creatinine Clearance 145 mL/min (70-130); Calcium 8.6 mg/dL (7.8-10.44); Carbon Dioxide 22 mmol/L (23-31); Chloride 103 mmol/L (98-107); Estimated GFR 97; Glucose 153 mg/dL (80-115); Potassium 3.8 mmol/L (3.5-5.1); Sodium 137 mmol/L (136-145)
[2022-10-05] MEDS ORDERED: Dextrose 50% Abboject 50 ML SYRINGE SLOW IVP PRN (09:07)
[2022-10-05] MEDS ORDERED: Glucagon 1 MG/ML KIT IM PRN (09:07)
[2022-10-05] MEDS ORDERED: Dextrose 5% in Water 1,000 ML IV PRN (09:07)
[2022-10-05] MEDS: LevoFLOXacin 750 MG TAB PO SCH (09:46)
[2022-10-05] MEDS: Empagliflozin 25 MG TAB PO SCH (09:48)
[2022-10-05] MEDS: Gabapentin 300 MG CAP PO SCH ×3 (09:48→20:52)
[2022-10-05] MEDS: Aspirin Chewable 81 MG TAB PO SCH (09:49)
[2022-10-05] MEDS: Clopidogrel Bisulfate 75 MG TAB PO SCH (09:50)
[2022-10-05] MEDS: Fludrocortisone Acetate 0.1 MG TAB PO SCH (09:50)
[2022-10-05] MEDS: Icosapent Ethyl 1 GM CAPSULE PO SCH ×2 (12:46→20:53)
[2022-10-05] MEDS ORDERED: Furosemide 40 MG/4 ML VIAL SLOW IVP SCH (14:30)
[2022-10-05] MEDS: Furosemide 20 MG/2 ML VIAL SLOW IVP SCH ×2 (15:13→16:40)
[2022-10-05] MEDS: HumaLOG 300 UNITS/3 ML VIAL SC PRN (18:20)
[2022-10-05] MEDS: Allopurinol 300 MG TAB PO SCH (20:51)
[2022-10-05] MEDS: Atorvastatin Calcium 10 MG TAB PO SCH (20:52)
[2022-10-05] MEDS: Colchicine 0.6 MG TAB PO SCH (20:52)
[2022-10-05] MEDS: Famotidine 20 MG TAB PO SCH (20:52)
[2022-10-05] MEDS: Zolpidem Tartrate 5 MG TAB PO SCH (20:53)
[2022-10-06] MEDS: LevoFLOXacin 750 MG TAB PO SCH (05:08)
[2022-10-06 05:30] LABS: #Monocytes 0.2 thou/uL (0.11-0.59); #Neutrophils 2.9 thou/uL (1.40-6.50); %Lymphocytes 7.9 % (21.0-51.0); %Neutrophils 84.2 % (42.0-75.0); Hematocrit 36.4 % (42.0-52.0); Hemoglobin 11.2 g/dL (14.0-18.0); Mean Corpuscular HGB CONC 30.8 g/dL (32.0-36.0); Mean Corpuscular Hemoglobin 32.8 pg (27.0-31.0); Mean Corpuscular Volume 106.7 fl (78.0-98.0); Mean Platelet Volume 12.7 fL (7.4-10.4); RBC Distribution Width 17.2 % (11.5-14.5); Red Blood Cell (RBC) Count 3.41 mill/uL (4.70-6.10); White Blood Cell (WBC) Count 3.4 10x3/uL (4.8-10.8)
[2022-10-06 05:40] LABS: Hemoglobin A1c 7.7 % (4.0-6.0)
[2022-10-06 05:48] LABS: Platelet Count 50 10x3/uL (130-400)
[2022-10-06 05:53] LABS: Anion Gap 14 mmol/L (10-20); BUN (Urea Nitrogen) 21 mg/dL (8.4-25.7); Calc. Creatinine Clearance 141 mL/min (70-130); Calcium 8.5 mg/dL (7.8-10.44); Carbon Dioxide 28 mmol/L (23-31); Chloride 103 mmol/L (98-107); Estimated GFR 97; Glucose 213 mg/dL (80-115); Potassium 3.8 mmol/L (3.5-5.1); Sodium 141 mmol/L (136-145)
[2022-10-06] MEDS ORDERED: Furosemide 20 MG/2 ML VIAL SLOW IVP SCH ×2 (06:00→10:00)
[2022-10-06 06:20] LABS: Anisocytosis SLIGHT = 6-15 cells HPF (0-5); CellaVision Operator ID lab.abc; Macrocytosis SLIGHT = 6-15 cells HPF (0-5); Platelet Adequacy Comment Platelets Decreased; Polychromasia SLIGHT = 2-3 cells HPF (0-2); Tear Drops SLIGHT = 2-5 cells HPF (0-1)
[2022-10-06] MEDS: HumaLOG 300 UNITS/3 ML VIAL SC PRN ×4 (07:00→21:46)
[2022-10-06] MEDS: Ipratropium/Albuterol 3 ML NEB NEB SCH ×4 (07:11→23:19)
[2022-10-06] MEDS: Mometasone 100 MCG/PUFF (1 INHALER) INH SCH ×2 (07:12→19:37)
[2022-10-06] MEDS ORDERED: Furosemide 40 MG/4 ML VIAL SLOW IVP SCH ×2 (09:00→10:30)
[2022-10-06] MEDS: Fludrocortisone Acetate 0.1 MG TAB PO SCH (09:16)
[2022-10-06] MEDS: Empagliflozin 25 MG TAB PO SCH (09:16)
[2022-10-06] MEDS: Aspirin Chewable 81 MG TAB PO SCH (09:17)
[2022-10-06] MEDS: Icosapent Ethyl 1 GM CAPSULE PO SCH ×2 (09:17→21:45)
[2022-10-06] MEDS: Clopidogrel Bisulfate 75 MG TAB PO SCH (09:17)
[2022-10-06] MEDS: Gabapentin 300 MG CAP PO SCH ×3 (09:18→21:44)
[2022-10-06] MEDS: methylPREDNISolone Sod Succ 40 MG VIAL IVP SCH ×2 (09:19→21:45)
[2022-10-06] MEDS: Furosemide 40 MG/4 ML VIAL SLOW IVP SCH (14:19)
[2022-10-06] MEDS ORDERED: Insulin Glargine 30 UNITS/0.3 ML VIAL SC SCH (21:00)
[2022-10-06] MEDS ORDERED: ALPRAZolam 0.5 MG TAB PO SCH (21:00)
[2022-10-06] MEDS: Zolpidem Tartrate 5 MG TAB PO SCH (21:44)
[2022-10-06] MEDS: Famotidine 20 MG TAB PO SCH (21:44)
[2022-10-06] MEDS: Colchicine 0.6 MG TAB PO SCH (21:45)
[2022-10-06] MEDS: Allopurinol 300 MG TAB PO SCH (21:45)
[2022-10-06] MEDS: Atorvastatin Calcium 10 MG TAB PO SCH (21:45)
[2022-10-07] MEDS: LevoFLOXacin 750 MG TAB PO SCH (05:17)
[2022-10-07] MEDS: Furosemide 40 MG/4 ML VIAL SLOW IVP SCH (05:17)
[2022-10-07 05:45] LABS: #Monocytes 0.4 thou/uL (0.11-0.59); #Neutrophils 3.9 thou/uL (1.40-6.50); %Lymphocytes 6.9 % (21.0-51.0); %Monocytes 7.5 % (0.0-10.0); %Neutrophils 84.3 % (42.0-75.0); Hematocrit 40.9 % (42.0-52.0); Mean Corpuscular HGB CONC 31.8 g/dL (32.0-36.0); Mean Corpuscular Hemoglobin 33.2 pg (27.0-31.0); Mean Corpuscular Volume 104.6 fl (78.0-98.0); Mean Platelet Volume 10.7 fL (7.4-10.4); RBC Distribution Width 17.3 % (11.5-14.5); Red Blood Cell (RBC) Count 3.91 mill/uL (4.70-6.10); White Blood Cell (WBC) Count 4.6 10x3/uL (4.8-10.8)
[2022-10-07 05:52] LABS: Platelet Count 61 10x3/uL (130-400)
[2022-10-07 06:06] LABS: Anion Gap 17 mmol/L (10-20); BUN (Urea Nitrogen) 27 mg/dL (8.4-25.7); Calc. Creatinine Clearance 115 mL/min (70-130); Calcium 9.2 mg/dL (7.8-10.44); Carbon Dioxide 31 mmol/L (23-31); Chloride 94 mmol/L (98-107); Estimated GFR 88; Glucose 223 mg/dL (80-115); Magnesium 2.3 mg/dL (1.6-2.6); Potassium 3.8 mmol/L (3.5-5.1); Sodium 138 mmol/L (136-145)
[2022-10-07] MEDS: HumaLOG 300 UNITS/3 ML VIAL SC PRN ×2 (06:21→11:46)
[2022-10-07] MEDS: Ipratropium/Albuterol 3 ML NEB NEB SCH (06:50)
[2022-10-07] MEDS: Mometasone 100 MCG/PUFF (1 INHALER) INH SCH (06:52)
[2022-10-07 08:06] VITALS: BP 140/78; TEMP 98.1
[2022-10-07] MEDS: Empagliflozin 25 MG TAB PO SCH (09:32)
[2022-10-07] MEDS: Aspirin Chewable 81 MG TAB PO SCH (09:33)
[2022-10-07] MEDS: Icosapent Ethyl 1 GM CAPSULE PO SCH (09:33)
[2022-10-07] MEDS: Clopidogrel Bisulfate 75 MG TAB PO SCH (09:33)
[2022-10-07] MEDS: Gabapentin 300 MG CAP PO SCH (09:34)
[2022-10-07] MEDS: Fludrocortisone Acetate 0.1 MG TAB PO SCH (09:35)
[2022-10-07] MEDS: methylPREDNISolone Sod Succ 40 MG VIAL IVP SCH (09:36)
[2022-10-08] MEDS ORDERED: Furosemide 40 MG TAB PO SCH (07:30)
== END 2022-10-07 12:30 | disposition home or self-care (01) | DRG 193 ==
LOC: ERS 07:17 → ERHOLD 12:36 → 2NO 15:34
PROVIDERS: ADMIT Family Medicine; ATTEND Family Medicine
PROC: 4A133R1 Monitoring of Arterial Saturation, Peripheral, Percutaneous Approach (ICD-10-PCS; principal; 2022-10-04)
DX: J18.9 Pneumonia, unspecified organism (principal); I50.33 Acute on chronic diastolic (congestive) heart failure; J96.01 Acute respiratory failure with hypoxia; I24.8 Other forms of acute ischemic heart disease; I11.0 Hypertensive heart disease with heart failure; I25.10 Atherosclerotic heart disease of native coronary artery without angina pectoris; E11.40 Type 2 diabetes mellitus with diabetic neuropathy, unspecified; K21.9 Gastro-esophageal reflux disease without esophagitis; E11.51 Type 2 diabetes mellitus with diabetic peripheral angiopathy without gangrene; I95.1 Orthostatic hypotension; E78.5 Hyperlipidemia, unspecified; D46.9 Myelodysplastic syndrome, unspecified; Z85.118 Personal history of other malignant neoplasm of bronchus and lung; Z98.890 Other specified postprocedural states; Z95.1 Presence of aortocoronary bypass graft; Z90.49 Acquired absence of other specified parts of digestive tract; Z87.891 Personal history of nicotine dependence; Z79.51 Long term (current) use of inhaled steroids; Z79.899 Other long term (current) drug therapy; Z79.82 Long term (current) use of aspirin; Z79.4 Long term (current) use of insulin; Z95.5 Presence of coronary angioplasty implant and graft; Z88.8 Allergy status to other drugs, medicaments and biological substances
CPT/HCPCS: 36415; 36416; 36600; 71045; 71275; 80048; 80053; 82805; 83036; 83605; 83735; 83880; 84145; 84484; 85025; 87040; 93005; 93306; 93970; 94640; 96365; 96366; 96367; 96372; 96375; J0692; J1642; J1650; J1815; J1940; J2920; J2930; J3370; J3475; J7620; Q9967

== ENCOUNTER 2022-12-02 09:00 | Day surgery (SDC) | payer MEDICARE, BC ==
[2022-12-02] MEDS ORDERED: Acetaminophen 500 MG TAB ONE (09:54)
[2022-12-02] MEDS ORDERED: diphenhydrAMINE 25 MG CAP ONE (09:54)
[2022-12-02] MEDS ORDERED: diphenhydrAMINE 25 MG CAP PO SCH (10:00)
[2022-12-02] MEDS ORDERED: Acetaminophen 500 MG TAB PO SCH (10:00)
[2022-12-02] MEDS ORDERED: FLU VACC QS2023(65UP)/MF59C/PF 60 MCG/0.5 ML SYRINGE IM ONE (11:00)
[2022-12-02 12:39] VITALS: BP 126/61; TEMP 98.1
== END 2022-12-02 12:39 | disposition home or self-care (01) ==
LOC: ONC/OP 09:00
PROVIDERS: ATTEND Internal Medicine Hematology & Oncology
DX: D64.9 Anemia, unspecified (principal); D69.6 Thrombocytopenia, unspecified
CPT/HCPCS: 36430; 86850; 86900; 86901; 86920; P9016

== ENCOUNTER 2023-01-03 10:51 | Outpatient (CLI) | payer MEDICARE, BC | END 2023-01-03 10:52 | disposition home or self-care (01) | LOC: BICCT 10:51 | PROVIDERS: ATTEND Internal Medicine Hematology & Oncology | DX: C34.82 Malignant neoplasm of overlapping sites of left bronchus and lung (principal); R91.8 Other nonspecific abnormal finding of lung field | CPT/HCPCS: 71260 ==

== ENCOUNTER 2023-03-30 08:39 | Outpatient (CLI) | payer MEDICARE, BC | END 2023-03-30 08:40 | disposition home or self-care (01) | LOC: RAD 08:39 | PROVIDERS: ATTEND Internal Medicine Critical Care Medicine | DX: R06.00 Dyspnea, unspecified (principal); J98.4 Other disorders of lung | CPT/HCPCS: 71046 ==